=== PATIENT | male | born 1935 | race Caucasian/White ===

== ENCOUNTER 2017-02-21 14:56 | Inpatient (IN) | payer OTHER, MEDICARE ==
[~2017-02-21] VITALS: Ht 162.6 cm; Wt 45.8 kg
[2017-02-21 07:45] VITALS: BP 128/67
[~2017-02-21 14:56] MED LIST: GLIP5TAB4 PO; LISI-420 PO; TRAM50TA94 PO
--- NOTE | 2017-02-21 15:19 | NUR ---
Patient wheelchair assisted to bed 7 at this time.
--- NOTE | 2017-02-21 15:20 | NUR ---
81/M BIB DAUGHTER c/o mid abdominal pain, bloating distended firm---February 02, 2017 surgery february 05, 2017---bowel obstruction and hernia repair---] -triple lumen central line left subclavicular -supra umbilical region surgical scar down to suprapubic-stables intact -suprapubic ostomy with bag intact, cloudy urine noted--ostomy site pink and clean -JEREL bulb sution to right inguinal area small amount of dark drainage noted, insert site appears clean intact -stables to hernia repair left inguinal area appear clean and intact pt continues to complain of abd pain distention, fever, chills, loose stools hx ---prostate ca, htn, dm, kidney failureWARM/DRY; AAOX4 WITH EVEN AND STEADY GAIT; LUNGS CLEAR BL; HR EVEN AND REGULAR; PT DENIES ANY FEVER, CP, SOB, OR COUGH AT THIS TIME; PATIENT STATES PAIN OF 0/10 AT THIS TIME; VSS; PATIENT POSITIONED FOR COMFORT; HOB ELEVATED; BEDRAILS UP X2; BED DOWN. ER MD MADE AWARE OF PT STATUS.
--- NOTE | 2017-02-21 15:24 | NUR ---
ER MD DR KENDRICK EVALUATING PT AT BEDSIDE.
[2017-02-21 15:40] VITALS: BP 135/67
[2017-02-21] MEDS ORDERED: PIPERACILLIN/TAZOBACTAM 4.5 GM in DEXTROSE 5% 100 ML IV ONE (15:40)
--- NOTE | 2017-02-21 15:49 | NUR ---
accompanied by daughter in law Patrizia Lopez [phone] / Fabio Lopez [phone]
[2017-02-21] MEDS ORDERED: PIPERACILLIN/TAZOBACTAM 2.25 GM VIAL IV ONE (16:06)
[2017-02-21 16:09] LABS: BASOPHILS % (AUTO) 0.3 % (0.0-2.0); EOSINOPHILS # (AUTO) 0.3 K/uL (0-0.4); EOSINOPHILS % (AUTO) 2.4 % (0.0-4.0); HEMATOCRIT 30.6 % (36-52); LYMPHOCYTES # (AUTO) 0.7 K/uL (2.0-11.5); LYMPHOCYTES % (AUTO) 5.2 % (20.5-51.1); MEAN CORPUSCULAR HEMOGLOBIN 30 pg (27-31); MEAN CORPUSCULAR HGB CONC 33 g/dL (33-37); MEAN CORPUSCULAR VOLUME 93 fL (80-94); MONOCYTES # (AUTO) 0.7 K/uL (0.8-1.0); MONOCYTES % (AUTO) 4.6 % (1.7-9.3); NEUTROPHILS # (AUTO) 12.6 K/uL (1.8-7.7); NEUTROPHILS % (AUTO) 87.5 % (42.2-75.2); PLATELET COUNT (AUTO) 495 K/uL (140-450); WHITE BLOOD COUNT (AUTO) 14.3 K/uL (4.8-10.8)
--- NOTE | 2017-02-21 16:20 | NUR ---
Emily marcial in ED - 02/21/17 at 1620 by MED1 PT TAKEN TO CT VIA ANTONIO ACCOMPANIED BY BREANNE CACERES.
--- NOTE | 2017-02-21 16:20 | NUR ---
PT TAKEN TO CT VIA GURSHAYLEE ACCOMPANIED BY SECTION REPAIRER..
[2017-02-21 16:24] LABS: APPEARANCE,URINE SL CLOUDY (CLEAR); BILIRUBIN,URINE NEGATIVE (NEGATIVE); BLOOD, URINE 2+ (NEGATIVE); COLOR,URINE YELLOW (YELLOW); LEUKOCYTE ESTERASE ,URINE 3+ (NEGATIVE); NITRITE, URINE POSITIVE (NEGATIVE); PROTEIN,URINE 2+ (NEGATIVE); UGLUCOSE NEGATIVE (NEGATIVE); UROBILINOGEN,URINE 0.2 EU/dL (0.2 - 1)
[2017-02-21 16:30] LABS: ALANINE AMINOTRANSFERASE 29 U/L (12-78); ALBUMIN 2.1 g/dL (3.4-5.0); ALKALINE PHOSPHATASE 246 U/L (46-116); AMYLASE 69 U/L (25-115); ANION GAP 9.5 (8-16); ASPARTATE AMINOTRANSFERASE 24 U/L (15-37); CALCIUM 8.4 mg/dL (8.5-10.1); CHLORIDE 97 mmol/L (98-107); CREATININE 1.1 mg/dL (0.6-1.3); GLUCOSE 98 mg/dL (74-106); LIPASE 78 U/L (73-393); POTASSIUM 4.5 mmol/L (3.5-5.1); SODIUM SERUM 132 mmol/L (136-145); TOTAL BILIRUBIN 0.4 mg/dL (0.0-1.0); TOTAL PROTEIN, SERUM 6.7 g/dL (6.4-8.2); UREA NITROGEN, BLOOD 28 mg/dL (7-18)
[2017-02-21 16:32] LABS: LACTIC ACID 1.1 mmol/L (0.4-2.0)
[2017-02-21 16:48] LABS: BACTERIA,URINE 3+ /HPF (None Seen); RBC,URINE 3-10 (FEW) /HPF (0-5); WBC,URINE TOO MANY TO COUNT /HPF (0-5)
[2017-02-21 16:49] LABS: SQUAMOUS EPITHELIAL CELL,UR 0-3 (FEW) /LPF (0-3 (FEW))
--- NOTE | 2017-02-21 19:27 | NUR ---
Patient will be admitted to care of TIPPLE SUPERVISOR BAR. Admited to MS. Will go to [id number]. Belongings list completed. Report to GILLIAN SHAW.
[2017-02-21] MEDS ORDERED: MORPHINE SULFATE 2 MG/ML SYR IVP PRN (19:35)
[2017-02-21] MEDS ORDERED: HYDROcodone/APAP 5/325 MG 1 TAB TAB PO PRN (19:35)
[2017-02-21] MEDS ORDERED: ACETAMINOPHEN 325 MG TAB PO PRN (19:35)
[2017-02-21] MEDS ORDERED: ONDANSETRON 4 MG/2 ML VIAL IVP PRN (19:35)
[2017-02-21] MEDS ORDERED: LORazepam 2 MG/ML VIAL IVP PRN (19:35)
--- NOTE | 2017-02-21 19:40 | NUR ---
ADMITTED A 81 YEARS OLD MALE INTO TELE UNIT. PATIENT RESTING IN BED, TELE MONITOR PLACED, NO S/S OF ACUTE DISTRESS NOTED. A TRIPLE LUMEN CATHETER CENTRAL LINE TO THE LT SUBCLAVIAN NOTED, INTACT AND PATENT, DRESSING DRY AND CLEAN, ILEOCYSTOSTOMY STOMA AT LT LOWER ABDOMINAL QUADRANT WITH A BAG DRAINING YELLOW URINE, RT LOWER ABDOMINAL AREA NOTED A SAN[place], NO DRAINAGE NOTED AT THIS TIME. UPON SKIN ASSESSMENT, NOTED A VERTICAL SURGICAL INCISION ON THE ABDOMEN, INCISION CLEAN AND NO DRAINAGE NOTED. PATIENT ALERT, AWAKE, ORIENTED X4. VITAL SIGNS TAKEN, WITH IN NORMAL RANGE. CALL LIGHT WITHIN REACH, SAFETY MEASURE ENSURED, WILL CONTINUE TO MONITOR.
[2017-02-21 19:45] VITALS: BP 128/67
[2017-02-21] MEDS ORDERED: PIPERACILLIN/TAZOBACTAM 3.375 GM VIAL IV ONE (21:38)
[2017-02-21] MEDS: PIPERACILLIN/TAZOBACTAM 3.375 GM in DEXTROSE 5% 50 ML IV SCH (21:39)
[2017-02-21] MEDS: NACL 0.9% 1,000 ML IV SCH (21:40)
--- NOTE | 2017-02-21 22:10 | NUR ---
PATIENT STATED PAIN 6/10. MEDICATED ORDERED, WILL CONTINUE TO MONITOR
--- NOTE | 2017-02-21 23:00 | NUR ---
PATIENT ASLEEP IN BED, RESPIRATION EVEN AND UNLABORED, NO S/S OF ACUTE DISTRESS NOTED, CALL LIGHT WITHIN REACH, SAFETY MEASURE ENSURED, WILL CONTINUE TO MONITOR.
[2017-02-22] VITALS: BP 123/63
[2017-02-22 04:00] VITALS: BP 135/67
[2017-02-22] MEDS ORDERED: PIPERACILLIN/TAZOBACTAM 3.375 GM VIAL IV ONE (04:46)
[2017-02-22] MEDS: PIPERACILLIN/TAZOBACTAM 3.375 GM in DEXTROSE 5% 50 ML IV SCH (04:46)
--- NOTE | 2017-02-22 04:50 | NUR ---
ZOSYN GIVEN ORDERED, CHARGE NURSE IS IN THE ROOM CHANGING THE ILEOCYSTOSTOMY BAG. PATIENT IS STABLE.
--- NOTE | 2017-02-22 05:30 | NUR ---
PATIENT ASLEEP IN BED , RESPIRATION EVEN AND UNLABORED, NO S/S OF ACUTE DISTRESS NOTED, WILL CONTINUE TO MONITOR.
[2017-02-22 05:52] LABS: BASOPHILS # (AUTO) 0.1 K/uL (0.00-0.22); BASOPHILS % (AUTO) 0.6 % (0.0-2.0); EOSINOPHILS # (AUTO) 0.2 K/uL (0-0.4); EOSINOPHILS % (AUTO) 2.6 % (0.0-4.0); HEMATOCRIT 26.7 % (36-52); HEMOGLOBIN 8.5 g/dL (12.0-18.0); LYMPHOCYTES % (AUTO) 10.4 % (20.5-51.1); MEAN CORPUSCULAR HEMOGLOBIN 29 pg (27-31); MEAN CORPUSCULAR HGB CONC 32 g/dL (33-37); MEAN CORPUSCULAR VOLUME 92 fL (80-94); MONOCYTES # (AUTO) 0.6 K/uL (0.8-1.0); MONOCYTES % (AUTO) 6.7 % (1.7-9.3); NEUTROPHILS # (AUTO) 7.7 K/uL (1.8-7.7); NEUTROPHILS % (AUTO) 79.7 % (42.2-75.2); PLATELET COUNT (AUTO) 417 K/uL (140-450); RED CELL DISTRIBUTION WIDTH 14.2 % (11.6-13.7); WHITE BLOOD COUNT (AUTO) 9.6 K/uL (4.8-10.8)
[2017-02-22 06:24] LABS: ALANINE AMINOTRANSFERASE 23 U/L (12-78); ALBUMIN 1.8 g/dL (3.4-5.0); ALKALINE PHOSPHATASE 189 U/L (46-116); ANION GAP 10.5 (8-16); ASPARTATE AMINOTRANSFERASE 20 U/L (15-37); CALCIUM 7.8 mg/dL (8.5-10.1); CARBON DIOXIDE 29.3 mmol/L (21-32); CHLORIDE 98 mmol/L (98-107); CREATININE 1.2 mg/dL (0.6-1.3); GLUCOSE 143 mg/dL (74-106); POTASSIUM 4.8 mmol/L (3.5-5.1); SODIUM SERUM 133 mmol/L (136-145); TOTAL BILIRUBIN 0.5 mg/dL (0.0-1.0); UREA NITROGEN, BLOOD 25 mg/dL (7-18)
--- NOTE | 2017-02-22 07:15 | NUR ---
ENDORSED PLAN OF CARE TO DAY RN. PATIENT IS IN STABLE CONDITION.
--- NOTE | 2017-02-22 07:15 | NUR ---
RECEIVED PT REPORT AT BEDSIDE FROM NIGHT NURSE. PT IS AAOX4 AND SHOWS NO S/S OF DISTRESS ON ROOM AIR. PT HAS A PICC LINE ON THE UPPER LEFT SIDE OF HIS CHEST THAT HAS IVF'S INFUSING WELL. PT HAS AN ABD INCISION WITH YON THAT IS AYO FROM AN ABD SURGERY SECONDARY TO SMALL BOWEL OBSTRUCTION THAT WAS DONE 2 WEEKS AGO. PT HAS A SUPRAPUBIC OSTOMY CATHETER ATTACHED TO A BAG WITH YELLOW CLEAR URINE. PT ALSO HAS A JEREL DRAIN WITH NO DRAINAGE. PT STATES HE HAS PAIN OF 6/10 ON HIS EPIGASTRIC REGION. WILL ADMINISTER PRN PAIN MEDICATION. PT HAS EDUCATED ON HIS POC AND HER VERBALIZED UNDERSTANDING. THE BED IS LOWERED WITH CALL LIGHT WITHIN REACH WILL CONTINUE TO MONITOR.
[2017-02-22 08:00] VITALS: BP 152/64
--- NOTE | 2017-02-22 08:30 | NUR ---
ADMINISTERED SCHEDULED MEDICATIONS AND PRN PAIN MEDICATION. PT TOLERATED WELL. PT IS NOW BEING SEEN BY AIRPORT ELECTRICIAN.
[2017-02-22] MEDS: NACL 0.9% 1,000 ML IV SCH (08:37)
[2017-02-22] MEDS: ENOXAPARIN 40 MG/0.4 ML SYR SUBQ SCH (08:37)
--- NOTE | 2017-02-22 09:50 | NUR ---
PATIENT HAS BEEN SCREENED AND CATEGORIZED HIGH NUTRITION RISK. PATIENT WILL BE SEEN WITHIN 1-2 DAYS OF ADMISSION. 02/22/17-02/23/[address]
--- NOTE | 2017-02-22 11:00 | NUR ---
PT HAD A LARGE LOOSE BM. PT WAS GIVEN PERINEAL CARE AND REPOSITIONED. PT STATES NO PAIN AND SHOWS NO S/S OF DISTRESS ON ROOM AIR.
--- NOTE | 2017-02-22 11:55 | NUR ---
CM NOTE INITIAL REVIEW FAXED TO [facility] / FAX# [phone], ATTN: NAHUM #[phone]
[2017-02-22 12:00] VITALS: BP 147/78
--- NOTE | 2017-02-22 12:35 | NUR ---
02/22/17 RD INITIAL ASSESSMENT COMPLETED PLEASE REFER TO NUTRITION ASSESSMENT UNDER CARE ACTIVITY FOR ESTIMATED NUTRITIONAL NEEDS. 1. WHEN MEDICALLY FEASIBLE, INITIATE PO DIET TO START ON CLEAR LIQUID DIET AND ADVANCE TOLERATED TO REGULAR DIET 2. IF PO DIET NOT FEASIBLE WITHIN 2-3 DAYS, CONSIDER PARENTERAL NUTRITION SUPPORT 3. RD TO FOLLOW-UP 2-3 DAYS; HIGH RISK HARMAN PACHECO, SADE
[2017-02-22] MEDS: PIPER/TAZO 2.25GM/D5W PREMIX 50 ML IV SCH ×3 (12:42→23:23)
--- NOTE | 2017-02-22 12:42 | NUR ---
ADMINISTERED SCHEDULED MEDICATIONS. PT SHOWS NO S/S OF DISTRESS ON ROOM AIR. PT DENIES PAIN. PT DOES STATE HE FEELS WEAK. PT ENCOURAGED TO USE CALL LIGHT WHENEVER HE NEEDS ASSISTANCE. PT VELARIZED UNDERSTANDING. WILL CONTINUE TO MONITOR.
[2017-02-22] MEDS ORDERED: INSULIN LISPRO SLIDING SCALE 100 UNITS/ML VIAL SUBQ PRN (12:55)
[2017-02-22] MEDS ORDERED: PIPER/TAZO 3.375GM/D5W PREMIX 50 ML IV SCH (13:00)
[2017-02-22] MEDS: DEXT 5% / NACL 0.9% 1,000 ML IV SCH (14:00)
--- NOTE | 2017-02-22 14:30 | NUR ---
PT IS IN BED SLEEPING AND SHOWS NO S/S OF DISTRESS ON ROOM AIR. PT HAVE NOTED PICC LINE WITH IVF'S INFUSING WELL.PT DENIES PAIN. WILL CONTINUE TO MONITOR.
[2017-02-22 16:15] VITALS: BP 123/63
[2017-02-22] MEDS ORDERED: BLOOD GLUCOSE MONITORING 1 DEV DEV FS SCH (16:30)
--- NOTE | 2017-02-22 16:30 | NUR ---
PT HAS HAD ANOTHER LOOSE BM. PT HAS AN ORDER FOR C DIFF COLLECTION HOWEVER THERE IS NOT ENOUGH STOOL TO BE COLLECTED. PT WAS GIVEN PERINEAL CARE AND REPOSITIONED. WILL CONTINUE TO MONITOR.
--- NOTE | 2017-02-22 18:37 | NUR ---
ADMINISTERED SCHEDULED MEDICATIONS. PT THEN HAD A LARGE BM. PT WAS GIVEN PERINEAL CARE AND REPOSITIONED. RN COLLECTED STOOL SPECIMEN FOR C DIFF TOXIN CULTURE AND SENT TO LAB.
--- NOTE | 2017-02-22 18:39 | NUR ---
PT IS AAOX4 AND SHOWS NO S/S OF DISTRESS ON ROOM AIR. PT SUPRAPUBIC OSTOMY HAS CLEAR YELLOW URINE. PT'S JEREL DRAIN HAD NO DRAINAGE DURING SHIFT. PT'S ABD INCISION IS AYO WITH PINK SURROUNDING TISSUE. PT DENIES PAIN. IV HAVE ABX INFUSING WELL. WILL ENDORSE TO THE NIGHT NURSE.
--- NOTE | 2017-02-22 19:28 | NUR ---
GAVE REPORT TO WINDOWS VMWARE ENGINEER NURSE. PT ENDORSED IN STABLE CONDITION.
--- NOTE | 2017-02-22 19:30 | NUR ---
RECEIVED PT SLEEPING, EASILY AROUSABLE BUT LETHARGIC, AAOX4, ABLE TO MAKE NEEDS KNOWN, VITAL SIGNS STABLE, DENIES ANY PAIN, IVF WITH D5 NS @75ML/H, INFUSING WELL VIA LEFT UPPER CHEST 3 LUMEN CENTRAL LINE, MIDLINE ABDOMINAL INCISION WITH YON, OPEN TO AIR, NO DRAINAGE OR BLEEDING NOTED, WITH RT JEREL DRAIN TO BULB SUCTION WITH SCANTY DARK RED DRAINAGE, WITH LEFT UROSTOMY TUBE ATTACH TO DRAINAGE BAG NOTED, LEAKING NOTED ON THE STOMA SITE, 'Devin AWARE PER AM RN, DRAINING CLOUDY YELLOW URINE, MAINTAIN ON NPO, SAFETY MEASURES IN PLACE, CALL LIGHT WITHIN REACH. Addendum: 02/23/17 at 0518 by Christian Aaron RN JEREL DRAINAGE DARK BROWN IN COLOR
[2017-02-22 20:00] VITALS: BP 136/72
--- NOTE | 2017-02-22 21:00 | NUR ---
PT SEEN SLEEPING WITH BLANKET OVER HIS HEAD, EASILY AROUSABLE, DENIES ANY PAIN, ALL NEEDS ATTENDED
[2017-02-23] VITALS: BP 130/62
--- NOTE | 2017-02-23 | NUR ---
PT SLEEPING, NO SIGNS OF DISTRESS, VITAL SIGNS STABLE, AFEBRILE, DENIES ANY PAIN, NO EPISODE OF DIARRHEA NOTED SO FAR, IV ANTIBIOTIC INFUSING WELL, CONTINUE TO MONITOR CLOSELY.
[2017-02-23] MEDS: DEXT 5% / NACL 0.9% 1,000 ML IV SCH (03:59)
[2017-02-23 04:00] VITALS: BP 132/66
--- NOTE | 2017-02-23 04:00 | NUR ---
PT SLEEPING, NO SIGNS OF DISTRESS, VITAL SIGNS STABLE, AFEBRILE, IVF INFUSING WELL, MONITORED CLOSELY.
[2017-02-23] MEDS: PIPER/TAZO 2.25GM/D5W PREMIX 50 ML IV SCH ×2 (05:15→13:03)
--- NOTE | 2017-02-23 05:20 | NUR ---
PT EASILY AROUSABLE, DENIES ANY PAIN, DUE IV ANTIBIOTIC ADMINISTERED, CATHETER DRAINAGE WITH 400ML URINE OUTPUT, JEREL DRAIN WITH SCANTY DARK BROWN DRAINAGE, CONTINUE ON BULB SUCTION, NO EPISODE OF DIARRHEA NOTED, MAINTAINED ON NPO, IVF INFUSING WELL,
[2017-02-23 06:20] LABS: BASOPHILS % (AUTO) 0.1 % (0.0-2.0); EOSINOPHILS # (AUTO) 0.1 K/uL (0-0.4); EOSINOPHILS % (AUTO) 1.7 % (0.0-4.0); HEMOGLOBIN 8.2 g/dL (12.0-18.0); LYMPHOCYTES % (AUTO) 14.3 % (20.5-51.1); MEAN CORPUSCULAR HEMOGLOBIN 30 pg (27-31); MEAN CORPUSCULAR HGB CONC 33 g/dL (33-37); MEAN CORPUSCULAR VOLUME 92 fL (80-94); MONOCYTES # (AUTO) 0.5 K/uL (0.8-1.0); MONOCYTES % (AUTO) 7.9 % (1.7-9.3); NEUTROPHILS # (AUTO) 5.2 K/uL (1.8-7.7); PLATELET COUNT (AUTO) 401 K/uL (140-450); RED BLOOD CELL COUNT(AUTO) 2.71 MIL/uL (4.20-6.10); RED CELL DISTRIBUTION WIDTH 14.1 % (11.6-13.7); WHITE BLOOD COUNT (AUTO) 6.8 K/uL (4.8-10.8)
[2017-02-23 06:50] LABS: ALANINE AMINOTRANSFERASE 23 U/L (12-78); ALBUMIN 1.7 g/dL (3.4-5.0); ALKALINE PHOSPHATASE 179 U/L (46-116); ANION GAP 11.9 (8-16); ASPARTATE AMINOTRANSFERASE 20 U/L (15-37); CALCIUM 7.5 mg/dL (8.5-10.1); CARBON DIOXIDE 27.9 mmol/L (21-32); CHLORIDE 105 mmol/L (98-107); CREATININE 1.2 mg/dL (0.6-1.3); GLUCOSE 238 mg/dL (74-106); POTASSIUM 3.8 mmol/L (3.5-5.1); SODIUM SERUM 141 mmol/L (136-145); TOTAL BILIRUBIN 0.3 mg/dL (0.0-1.0); TOTAL PROTEIN, SERUM 5.7 g/dL (6.4-8.2); UREA NITROGEN, BLOOD 20 mg/dL (7-18)
--- NOTE | 2017-02-23 07:32 | NUR ---
PT SLEEPING, EASILY AROUSABLE, NO DISTRESS NOTED, REPORT GIVEN TO LIANNA FRENCH FOR CONTINUITY OF CARE.
--- NOTE | 2017-02-23 07:32 | NUR ---
RECEIVED PT REPORT AT BEDSIDE FROM NIGHT NURSE. PT IS AAOX4 AND SHOWS NO S/S OF DISTRESS ON ROOM AIR. PT HAS A NOTED UPPER 3 LUMEN CENTRAL LINE WITH IVF'S INFUSING WELL. PT HAS A NOTED ABD INCISION WITH YON AYO WITH NO SIGNS OF INFECTION. PT ALSO HAS A UROSTOMY BAG TO THE LLQ OF THE ABD WITH YELLOW CLOUDY URINE. PT HAS A JEREL DRAIN WITH SCANT DARK RED DRAINAGE. PT IS ABLE TO MAKE NEEDS KNOWN. PT DENIES PAIN. PT WAS EDUCATED ON THE POC FOR TODAY AND VERBALIZED UNDERSTANDING. PT BED IS LOWERED WITH CALL LIGHT WITHIN REACH. WILL CONTINUE TO MONITOR.
[2017-02-23 08:00] VITALS: BP 141/67
--- NOTE | 2017-02-23 08:10 | NUR ---
PT SHOWS NO S/S OF DISTRESS ON ROOM AIR. PT IS RESTING IN BED.
[2017-02-23] MEDS: LISINOPRIL 20 MG TAB PO SCH (09:25)
[2017-02-23] MEDS: ENOXAPARIN 40 MG/0.4 ML SYR SUBQ SCH (09:29)
--- NOTE | 2017-02-23 09:29 | NUR ---
ADMINISTERED SCHEDULED MEDICATIONS. PT TOLERATED ACTIVITY WELL. PT'S BED IS LOWERED WITH CALL LIGHT WITHIN REACH. WILL CONTINUE TO MONITOR.
--- NOTE | 2017-02-23 09:50 | NUR ---
PT SEEN BY DR MILLER. DR DISCONTINUED JEREL DRAIN WHICH CONTAINED A SCANT AMOUNT OF DARK RED BLOOD. DR ORDERED TO PLACE A DRESSING OVER THE WOUND OPENING FROM THE JEREL DRAIN INSERTION. DR ALSO TOOK OUT A COUPLE YON TOWARDS THE BOTTOM OF THE ABD MIDLINE INCISION. DR PLACED ORDERS TO PACK ABD WOUND WITH 2X2 GAUZE AND COVER WITH DRESSING. RN PLACED A NEW UROSTOMY BAG TO PT. PT TOLERATED ACTIVITY WELL. PT DENIES PAIN. PT BED WAS LOWERED WITH CALL LIGHT WITHIN REACH.
--- NOTE | 2017-02-23 11:57 | NUR ---
RECEIVED PT URINE CULTURE OF POSITIVE FOR ENTEROBACTER CLOACAE MDRO. WILL NOTIFY DR GALVAN.
[2017-02-23 12:00] VITALS: BP 130/74
--- NOTE | 2017-02-23 12:00 | NUR ---
PT IS BEING SEEN BY WOUND CONSULT RN. PT IS AAOX4 AND STATES HE IS TIRED. PAULETTE WOUND NURSE ASSESSED WOUND. PT TOLERATED WOUND CONSULT WELL. PT SHOWS NO S/S OF DISTRESS ON ROOM AIR. PT BED LOWERED WITH CALL LIGHT WITHIN REACH.
--- NOTE | 2017-02-23 13:10 | NUR ---
CM NOTE INITIAL REVIEW FAXED TO [facility] / FAX# [phone], ATTN: NAHUM #[phone]
--- NOTE | 2017-02-23 13:15 | NUR ---
ADMINISTERED SCHEDULED MEDICATIONS. PT WAS SAT UP TO EAT LUNCH.
[2017-02-23] MEDS ORDERED: TPN PER PHARMACY MC PRN (14:30)
--- NOTE | 2017-02-23 14:30 | NUR ---
DR. GALVAN ORDERED TPN FOR PT HOWEVER ORDER CANNOT BE FULFILLED UNTIL TOMORROW MORNING PER PHARMACY.
[2017-02-23] MEDS ORDERED: LEVOFLOXACIN 500 MG/D5W PREMIX 100 ML IV SCH (14:35)
--- NOTE | 2017-02-23 14:47 | NUR ---
PT BEING SEEN BY DR GALVAN. PT IS AAOX4 AND SHOWS NO S/S OF DISTRESS ON ROOM AIR. PT STATES NO PAIN.
--- NOTE | 2017-02-23 15:20 | NUR ---
PT IS SLEEPING AND SHOWS NO S/S OF DISTRESS ON ROOM AIR.
[2017-02-23 16:00] VITALS: BP 137/56
[2017-02-23] MEDS: LEVOFLOXACIN 250 MG/D5 PREMIX 50 ML IV SCH (17:14)
--- NOTE | 2017-02-23 17:14 | NUR ---
ADMINISTERED SCHEDULED MEDICATIONS. PT IS IN BED AND STATES HE IS TIRED WILL CONTINUE TO MONITOR.
[2017-02-23] MEDS: DEXTROSE 10% 1,000 ML IV SCH ×2 (17:20→20:03)
--- NOTE | 2017-02-23 17:20 | NUR ---
PT HAS DEXTOSE 10% SCHEDULED HOWEVER NON ARE AVAILABLE. CALLED PHARMACY AND THEY SAID THEY WOULD BRING IT TO UNIT. WILL ENDORSE TO NIGHT NURSE.
--- NOTE | 2017-02-23 18:00 | NUR ---
PT IS AROUSABLE TO NAME. PT IS AAOX4 AND SHOWS NO S/S OF DISTRESS ON ROOM AIR.
--- NOTE | 2017-02-23 19:20 | NUR ---
PT HAS VISITORS AT BEDSIDE AND SHOWS NO S/S OF DISTRESS ON ROOM AIR. PT HAS NOTED CENTRAL LINE WITH IVF'S INFUSING. PT DENIES PAIN AND SOB. PT REPORT WAS DONE AT BEDSIDE. PT ENDORSED IN STABLE CONDITION.
--- NOTE | 2017-02-23 19:35 | NUR ---
RECEIVED REPORT FROM LIANNA FRENCH. PATIENT IS AWAKE, ALERT, AND RESTING IN BED WITH FAMILY MEMBERS AT BEDSIDE. PATIENT IS PRIMARILY PERSIAN SPEAKING. NO SINGS OF ACUTE DISTRESS OR SHORTNESS OF BREATH NOTED AT THIS TIME. THERE IS A TRIPLE LUMEN CATHETER IN THE PATIENT'S LEFT SUBCLAVIAN RECEIVING D5NS AT 75 ML/HR. SITE IS DRY, INTACT, AND ASYMPTOMATIC. THERE IS A UROSTOMY BAG PRESENT. PATIENT IS S/P ABDOMINAL PROCEDURE BY DR. MILLER. THERE IS A SURGICAL INCISION IN THE PATIENT'S MIDLINE WITH YON COVERED WITH DRESSING. PATIENT PREVIOUSLY HAD A JEREL DRAIN IN THE RIGHT SIDE OF THE ABDOMEN, WHICH WAS REMOVED DURING DAY SHIFT. SITE IS COVERED WITH DRESSING. EXPLAINED PLAN OF CARE TO PATIENT AND FAMILY TO INCLUDE TELEMETRY MONITORING, VITAL SIGNS Q4H, AND SCHEDULED MEDICATION ADMINISTRATION. PATIENT AND FAMILY MEMBERS VERBALIZED UNDERSTANDING. SAFETY MEASURES ENFORCED, WITH CALL LIGHT WITHIN REACH. WILL CONTINUE TO MONITOR PATIENT.
[2017-02-23 20:00] VITALS: BP 131/57
[2017-02-24] VITALS: BP 128/57
--- NOTE | 2017-02-24 | NUR ---
PATIENT RESTING COMFORTABLY IN BED WITH NO SIGNS OF RESPIRATORY DISTRESS OR SOB NOTED. VITAL SIGNS ARE STABLE. NO REPORTS OF PAIN OR DISCOMFORT. HOB AT 30 DEGREES WITH BED IN LOW POSITION. CALL LIGHT WITHIN REACH. WILL CONTINUE TO MONITOR PATIENT.
--- NOTE | 2017-02-24 02:05 | NUR ---
ROUNDED ON PATIENT. PATIENT IS RESTING COMFORTABLY IN BED. NO SIGNS OF DISTRESS OR DISCOMFORT NOTED. BREATHING IS EVEN AND UNLABORED. SAFETY MEASURES ENFORCED, WITH CALL LIGHT WITHIN REACH. WILL CONTINUE TO MONITOR PATIENT.
--- NOTE | 2017-02-24 03:45 | NUR ---
VITAL SIGNS ARE STABLE. NO REPORTS OF PAIN OR DISCOMFORT. CONTINUE TO MONITOR PATIENT.
[2017-02-24 04:00] VITALS: BP 145/65
--- NOTE | 2017-02-24 05:10 | NUR ---
PATIENT RESTING COMFORTABLY IN BED. PATIENT COVERED HIMSELF INCLUDING HEAD WITH BLANKET. BREATHING IS EVEN AND UNLABORED. CALL LIGHT WITHIN REACH. CONTINUE TO MONITOR PATIENT.
--- NOTE | 2017-02-24 07:11 | NUR ---
PATIENT IN STABLE CONDITION. ALL NEEDS ATTENDED TO DURING SHIFT. ENDORSED CONTINUITY OF CARE TO LIANNA FRENCH.
--- NOTE | 2017-02-24 07:20 | NUR ---
RECEIVED PT REPORT AT BEDSIDE FROM NIGHT NURSE. PT IS AAOX4 AND SHOWS NO S/S OF DISTRESS ON ROOM AIR. PT HAS A NOTED CENTRAL LINE IN HIS L UPPER CHEST WITH 3 LUMEN AND IVF'S INFUSING WELL. PT HAS A NOTED ABD INCISION WITH YON FUNERAL WORKERS WITH NO SIGNS OF INFECTION. PT ALSO HAS A UROSTOMY BAG TO THE LLQ OF THE ABD WITH YELLOW CLOUDY URINE. PT HAS A SOILED DRESSING TO THE RLQ. PT IS ABLE TO MAKE NEEDS KNOWN. PT DENIES PAIN. PT WAS EDUCATED ON THE POC FOR TODAY AND VERBALIZED UNDERSTANDING. PT BED IS LOWERED WITH CALL LIGHT WITHIN REACH. WILL CONTINUE TO MONITOR.
[2017-02-24 07:29] LABS: BASOPHILS % (AUTO) 0.5 % (0.0-2.0); EOSINOPHILS # (AUTO) 0.1 K/uL (0-0.4); EOSINOPHILS % (AUTO) 1.7 % (0.0-4.0); HEMATOCRIT 24.7 % (36-52); HEMOGLOBIN 8.1 g/dL (12.0-18.0); LYMPHOCYTES % (AUTO) 11.9 % (20.5-51.1); MEAN CORPUSCULAR HEMOGLOBIN 30 pg (27-31); MEAN CORPUSCULAR HGB CONC 33 g/dL (33-37); MEAN CORPUSCULAR VOLUME 92 fL (80-94); MONOCYTES # (AUTO) 0.3 K/uL (0.8-1.0); MONOCYTES % (AUTO) 3.9 % (1.7-9.3); PLATELET COUNT (AUTO) 400 K/uL (140-450); RED BLOOD CELL COUNT(AUTO) 2.68 MIL/uL (4.20-6.10); RED CELL DISTRIBUTION WIDTH 14.4 % (11.6-13.7); WHITE BLOOD COUNT (AUTO) 8.4 K/uL (4.8-10.8)
[2017-02-24 07:58] LABS: ALANINE AMINOTRANSFERASE 27 U/L (16-63); ALBUMIN 1.7 g/dL (3.4-5.0); ALKALINE PHOSPHATASE 152 U/L (46-116); ANION GAP 8.1 (8-16); ASPARTATE AMINOTRANSFERASE 24 U/L (15-37); CALCIUM 7.4 mg/dL (8.5-10.1); CARBON DIOXIDE 27.5 mmol/L (21-32); CHLORIDE 106 mmol/L (98-107); CREATININE 1.1 mg/dL (0.7-1.3); GLUCOSE 277 mg/dL (74-106); POTASSIUM 3.6 mmol/L (3.5-5.1); SODIUM SERUM 138 mmol/L (136-145); TOTAL BILIRUBIN 0.2 mg/dL (0.0-1.0); TOTAL PROTEIN, SERUM 5.5 g/dL (6.4-8.2); UREA NITROGEN, BLOOD 11 mg/dL (7-18)
[2017-02-24 08:00] VITALS: BP 128/69
[2017-02-24 08:05] LABS: MAGNESIUM 1.7 mg/dL (1.8-2.4)
--- NOTE | 2017-02-24 10:00 | NUR ---
ADMINISTERED SCHEDULED MEDICATIONS. PT TOLERATED ACTIVITY WELL. PT DRESSINGS WERE CHANGE PER WOUND CARE ORDERS (PLEASE SEE WOUND ASSESSMENT). UROSTOMY BAG WAS CHANGE AND CLEANED WITH 50CC OF CLOUDY URINE. PT IS NOW IN BED EATING BREAKFAST AND TOLERATED FOOD WELL. THE BED IS LOWERED WITH CALL LIGHT WITHIN REACH. WILL CONTINUE TO MONITOR.
[2017-02-24] MEDS: LISINOPRIL 20 MG TAB PO SCH (10:24)
[2017-02-24] MEDS: ENOXAPARIN 40 MG/0.4 ML SYR SUBQ SCH (10:25)
[2017-02-24] MEDS ORDERED: MAG SULF 2000 MG/WATER PREMIX 50 ML IV ONE (11:05)
--- NOTE | 2017-02-24 11:12 | NUR ---
PT IS IN BED AND SHOWS NO S/S OF DISTRESS ON ROOM AIR WILL CONTINUE TO MONITOR.
[2017-02-24 12:00] VITALS: BP 146/74
[2017-02-24] MEDS ORDERED: MAGNESIUM SULFATE 50% 1,000 MG in NACL 0.9% 50 ML IV SCH (12:30)
--- NOTE | 2017-02-24 12:45 | NUR ---
PT IS IN ROOM SLEEPING AND SHOWS NO S/S OF DISTRESS ON ROOM AIR.
[2017-02-24] MEDS: DEXTROSE 10% 1,000 ML IV SCH (13:58)
--- NOTE | 2017-02-24 13:58 | NUR ---
ADMINISTERED SCHEDULED MEDICATION. PT IS IN BED AND SHOWS NO S/S OF DISTRESS ON ROOM AIR. PT STATES HE IS COLD WILL GIVE ANOTHER BLANKET.
--- NOTE | 2017-02-24 15:49 | NUR ---
CM NOTE AUTH#'S PROVIDED BY [facility] - FOR TRANSPORT ([facility]) #[id number] - FOR SNF ([place]) #[id number]
--- NOTE | 2017-02-24 15:54 | NUR ---
SS NOTE: PER DANISH FROM [facility] ([phone]), PT CAN GO TO ROOM 117B ANYTIME AFTER [address] SNYDER.
--- NOTE | 2017-02-24 15:55 | NUR ---
CM NOTE PATIENT TO BE PICKED UP VIA GURNEY BY [facility] GOING TO [facility]. ETA 2000.
[2017-02-24 16:00] VITALS: BP 151/78
--- NOTE | 2017-02-24 16:00 | NUR ---
PT IS IN ROOM SLEEPING AND SHOWS NO S/S OF DISTRESS ON ROOM AIR.
--- NOTE | 2017-02-24 16:46 | NUR ---
SS NOTE: PER DR. GALVAN, PT IS OK TO GO TO SNF WITH PT'S TPN FROM [facility]
[2017-02-24] MEDS: LEVOFLOXACIN 250 MG/D5 PREMIX 50 ML IV SCH (17:58)
[2017-02-24] MEDS ORDERED: INSULIN LISPRO SLIDING SCALE 100 UNITS/ML VIAL SUBQ PRN (18:00)
[2017-02-24] MEDS ORDERED: BLOOD GLUCOSE MONITORING 1 DEV DEV MC SCH (18:00)
--- NOTE | 2017-02-24 18:06 | NUR ---
PT BLOOD SUGAR WAS 279. WILL ADMINISTER HUMALOG SLIDING SCALE TOTAL OF 6 UNITS.
--- NOTE | 2017-02-24 19:05 | NUR ---
GAVE PT REPORT TO KALPANA AT [facility]. ALL QUESTIONS WERE ANSWERED. TRANSPORT TO ARRIVE AT 2000. WILL ENDORSE TO NIGHT NURSE.
--- NOTE | 2017-02-24 19:30 | NUR ---
PT HAD A BOWEL MOVEMENT AND URINE BAG LEAKED AND SOILED BED. PT WAS GIVEN PERINEAL CARE AND CHANGED INTO ORANGE GOWN. PT DRESSINGS WERE SOILED AND WERE CHANGED PER WOUND CARE ORDERS. A NEW UROSTOMY BAG WAS GIVEN. PT HAD SOME URINE IN BAD THAT WAS A TOTAL OF 100CC OF CLOUDY URINE. PT NEEDS WERE MET. PT WAS THEN GIVEN DISCHARGE INSTRUCTIONS. ALL PAPERWORK SIGNED. ALL QUESTIONS ANSWERED. PT VERBALIZED UNDERSTANDING OF BEING TRANSPORTED TO [facility]. PT HAS CENTRAL LINE 3 LUMEN PATENT AND INTACT. WRISTBANDS WERE REMOVED AND TELE MONITOR REMOVED. PT FAMILY YADIRA DAUGHTER IN LAW IS AWARE OF PT RETURNING TO [place]. PT AWAITING FOR TRANSPORT TO ARRIVE AT 1999. ALL BELONGINGS AND TPN IN PT'S POSSESSION.
--- NOTE | 2017-02-24 19:30 | NUR ---
IN ADDITION TO LAST NOTE. PT WAS GIVEN PERINEAL CARE AND BATHED. SOILED DRESSINGS WERE THROWN AWAY AND CLEANED. TOOK PICTURES OF ABD INCISION WOUND. THEN PROVIDED WOUND CARE PER MD ORDER.
--- NOTE | 2017-02-24 19:40 | NUR ---
TRANSPORT ARRIVED ONTO UNIT. GAVE PT REPORT TO KEYLA. ALL QUESTIONS WERE ANSWERED. PT WILL BE LEAVING UNIT SHORTLY. PT REPORT WAS GIVEN TO NIGHT NURSE SID FRENCH. PT ENDORSED IN STABLE CONDITION. SID RN IS AWARE TO HAVE ALL BELONGINGS INCLUDING TPN TO BE GIVEN TO TRANSPORT TO BE GIVEN TO [facility] FOR PT [place].
--- NOTE | 2017-02-24 19:45 | NUR ---
PICTURES WERE TAKEN AND TRIED TO PRINT HOWEVER UNABLE TO PRINT WOUND PICTURES DUE TO PRINTER NOT WORKING. SID FRENCH WILL FOLLOW UP.
[2017-02-24] MEDS ORDERED: AMINO ACIDS IV SCH ×4 (20:00)
[2017-02-24] MEDS ORDERED: DEXTROSE IV SCH ×4 (20:00)
[2017-02-24] MEDS ORDERED: [UNRECOGNIZED DRUG - OTHER] IV SCH ×4 (20:00)
[2017-02-24] MEDS ORDERED: MULTIVITAMIN IV SCH ×4 (20:00)
[2017-02-25] MEDS ORDERED: CALCIUM ACETATE 667 MG TAB PO SCH (08:00)
== END 2017-02-24 20:10 | DRG 247 ==
LOC: MED 14:56 → MTU 19:18
PROVIDERS: ADMIT Hospitalist; ATTEND Hospitalist
PROC: 05H633Z Insertion of Infusion Device into Left Subclavian Vein, Percutaneous Approach (ICD-10-PCS; principal; 2017-02-22)
DX: K56.69 Other intestinal obstruction (principal); E43 Unspecified severe protein-calorie malnutrition; N39.0 Urinary tract infection, site not specified; E86.0 Dehydration; E11.9 Type 2 diabetes mellitus without complications; Y83.9 Surgical procedure, unspecified as the cause of abnormal reaction of the patient, or of later complication, without mention of misadventure at the time of the procedure; R64 Cachexia; Y82.8 Other medical devices associated with adverse incidents; I10 Essential (primary) hypertension; Z68.1 Body mass index [BMI] 19.9 or less, adult; Z85.46 Personal history of malignant neoplasm of prostate; Z79.899 Other long term (current) drug therapy
CPT/HCPCS: 36415; 71010; 74250; 80053; 81001; 82150; 82948; 83605; 83690; 83735; 84100; 84478; 84484; 85025; 87040; 87070; 87081; 87086; 87186; 93005; 96365; 97110; 99291; A9153; J1650; J1815; J1956; J2270; J2543; J3475; J7030; J7042; J7060; Q0092

== ENCOUNTER 2018-06-14 21:24 | Inpatient (IN) | payer OTHER, MEDICARE ==
[~2018-06-14] VITALS: Ht 165.1 cm; Wt 47.6 kg
[~2018-06-14 21:24] MED LIST changes: -GLIP5TAB4 PO; -TRAM50TA94 PO
[2018-06-14 21:39] VITALS: BP 160/70
[2018-06-14] MEDS ORDERED: NACL 0.9% 1,000 ML IV ONE (21:49)
[2018-06-14] MEDS ORDERED: ONDANSETRON 4 MG/2 ML VIAL IVP ONE (21:50)
[2018-06-14] MEDS ORDERED: MORPHINE SULFATE 4 MG/ML SYR IVP ONE (21:50)
--- NOTE | 2018-06-14 21:52 | NUR ---
DR. HEDRICK MADE AWARE OF PT STATUS.
--- NOTE | 2018-06-14 21:55 | NUR ---
PT TAKEN TO CT
--- NOTE | 2018-06-14 22:06 | NUR ---
PT AMBULATED TO BED 02
--- NOTE | 2018-06-14 22:30 | NUR ---
FIRST CONTACT WITH PATIENT: PATIENT BIB FAMILY C/O BLOOD IN UROSTOMY BAG X 1 DAY . FAMILY STATES UROSTOMY WAS PLACED 01/2017. PATIENT GCS 15, AAOX4, BREATHING IS EVEN AND UNLABORED. PATIENT DENIES ANY DIZZINESS, NO SOB/CP. PATIENT DOES STATES PAIN IN SUPRAPUBIC REGION, 10/10. PATIENT DENIES ANY N/V/D. PATIENT CHANGED INTO HOSPITAL GOWN, CONNECTED TO CM. FAMILY AT BEDSIDE. NO ACUTE DISTRESS NOTED. DR HEDRICK MADE AWARE. WILL CONTINUE TO MONITOR
[2018-06-14 22:58] LABS: COLOR,URINE RED (YELLOW)
[2018-06-14 22:59] LABS: APPEARANCE,URINE TURBID (CLEAR)
[2018-06-14 23:00] LABS: BILIRUBIN,URINE NEGATIVE (NEGATIVE); BLOOD, URINE 4+ (NEGATIVE); PH,URINE 6.5 (5.0-9.0); UGLUCOSE NEGATIVE (NEGATIVE)
[2018-06-14 23:01] LABS: LEUKOCYTE ESTERASE ,URINE SMALL (NEGATIVE); NITRITE, URINE NEGATIVE (NEGATIVE); RBC,URINE TOO NUMEROUS TO COUN /HPF (0-5); WBC,URINE TOO MANY TO COUNT /HPF (0-5)
[2018-06-14 23:02] LABS: BASOPHILS % (AUTO) 0.1 % (0.0-2.0); EOSINOPHILS # (AUTO) 0.1 K/uL (0-0.4); EOSINOPHILS % (AUTO) 0.9 % (0.0-4.0); HEMATOCRIT 36.6 % (36-52); HEMOGLOBIN 12.1 g/dL (12.0-18.0); LYMPHOCYTES # (AUTO) 1.4 K/uL (2.0-11.5); LYMPHOCYTES % (AUTO) 16.1 % (20.5-51.1); MEAN CORPUSCULAR HEMOGLOBIN 32 pg (27-31); MEAN CORPUSCULAR HGB CONC 33 g/dL (33-37); MEAN CORPUSCULAR VOLUME 96.1 fL (80-94); MONOCYTES # (AUTO) 0.5 K/uL (0.8-1.0); MONOCYTES % (AUTO) 5.6 % (1.7-9.3); NEUTROPHILS # (AUTO) 6.9 K/uL (1.8-7.7); NEUTROPHILS % (AUTO) 77.3 % (42.2-75.2); PLATELET COUNT (AUTO) 177 K/uL (140-450); RED CELL DISTRIBUTION WIDTH 15.2 % (11.6-13.7); WHITE BLOOD COUNT (AUTO) 8.9 K/uL (4.8-10.8)
[2018-06-14] MEDS ORDERED: LEVOFLOXACIN 500 MG/D5W PREMIX 100 ML IV ONE (23:20)
[2018-06-14 23:25] LABS: PROTHROMBIN TIME 10.4 secs (10.8-13.4)
[2018-06-14 23:29] LABS: ALBUMIN 3.5 g/dL (3.4-5.0); ANION GAP 9.6 (8-16); ASPARTATE AMINOTRANSFERASE 16 U/L (15-37); CARBON DIOXIDE 27.4 mmol/L (21-32); CHLORIDE 108 mmol/L (98-107); CREATININE 1.6 mg/dL (0.7-1.3); GLUCOSE 130 mg/dL (74-106); LIPASE 118 U/L (73-393); SODIUM SERUM 141 mmol/L (136-145); TOTAL BILIRUBIN 0.4 mg/dL (0.0-1.0); UREA NITROGEN, BLOOD 30 mg/dL (7-18)
[2018-06-14] MEDS ORDERED: NACL 0.9% 1,000 ML IV SCH (23:58)
[2018-06-15] MEDS ORDERED: cefTRIAXone 1,000 MG VIAL ONE (00:05)
--- NOTE | 2018-06-15 00:18 | NUR ---
TYING MACHINE OPERATOR PRIMARY - YADIRA MONTAGUE (DAUGHTER IN LAW) [phone] SECONDARY - LUIS CLARI (SON) [phone]
[2018-06-15 00:25] VITALS: BP 127/46
--- NOTE | 2018-06-15 00:25 | NUR ---
REPORT RECEIVED FROM ED NURSE AT BEDSIDE. PT IN STABLE CONDITION. AAOX4. INTRODUCED SELF TO PT. BOARD UPDATED. IV SITE R FA 20G RUNNING NS@75ML/HR PATENT AND INTACT. SKIN WARM, DRY, AND INTACT WITH NO OPEN WOUNDS. PT HAS UROSTOMY IN PLACE. CONTACT PRECAUTION FOR HX OF MDRO OF THE URINE. NO COMPLAINTS OF PAIN. NO SOB. BED LOCKED IN LOW POSITION. CALL IVERSON WITHIN REACH. SAFETY PRECAUTIONS IN PLACE.
--- NOTE | 2018-06-15 00:25 | NUR ---
Patient will be admitted to care of DR GROVER. Admited to MS. Will go to room 110B. Belongings list completed. Report to MARKO FRENCH.
[2018-06-15] MEDS ORDERED: ONDANSETRON 4 MG/2 ML VIAL IVP PRN ×2 (00:30)
[2018-06-15] MEDS ORDERED: HYDROcodone/APAP 5/325 MG 1 TAB TAB PO PRN ×2 (00:30)
[2018-06-15] MEDS ORDERED: ACETAMINOPHEN 325 MG TAB PO PRN ×2 (00:30)
[2018-06-15] MEDS: NACL 0.9% 1,000 ML IV SCH ×2 (00:43→14:33)
--- NOTE | 2018-06-15 01:02 | NUR ---
MANUEL HUNG AND RUNNING. MANUEL DUE AT 2320 ON 06/14. OVERRIDDEN BY SANDIE FRENCH. PT TOLERATING WELL.
[2018-06-15] MEDS ORDERED: LEVOFLOXACIN 500 MG/D5W PREMIX 100 ML IV ONE (01:05)
--- NOTE | 2018-06-15 03:20 | NUR ---
PT SLEEPING COMFORTABLY IN BED. NO S/S OF DISTRESS NOTED. NO SOB. NO COMPLAINTS OF PAIN.
--- NOTE | 2018-06-15 07:05 | NUR ---
REPORT GIVEN TO AM NURSE AT BEDSIDE. PT IN STABLE CONDITION.
[2018-06-15 07:19] LABS: BASOPHILS % (AUTO) 0.1 % (0.0-2.0); EOSINOPHILS % (AUTO) 0.5 % (0.0-4.0); HEMATOCRIT 34.6 % (36-52); HEMOGLOBIN 11.5 g/dL (12.0-18.0); LYMPHOCYTES # (AUTO) 1.3 K/uL (2.0-11.5); MEAN CORPUSCULAR HEMOGLOBIN 32 pg (27-31); MEAN CORPUSCULAR HGB CONC 33 g/dL (33-37); MEAN CORPUSCULAR VOLUME 97.1 fL (80-94); MONOCYTES # (AUTO) 0.3 K/uL (0.8-1.0); MONOCYTES % (AUTO) 5.6 % (1.7-9.3); NEUTROPHILS # (AUTO) 4.4 K/uL (1.8-7.7); NEUTROPHILS % (AUTO) 72.8 % (42.2-75.2); PLATELET COUNT (AUTO) 152 K/uL (140-450); RED BLOOD CELL COUNT(AUTO) 3.56 MIL/uL (4.20-6.10); RED CELL DISTRIBUTION WIDTH 14.7 % (11.6-13.7); WHITE BLOOD COUNT (AUTO) 6.1 K/uL (4.8-10.8)
--- NOTE | 2018-06-15 07:30 | NUR ---
RECEIVED PT REPORT FROM LIVESTOCK BUYER NURSE AT BEDSIDE. PT IS SLEEPING, AROUSED BY NAME, OX4. IV SITE NOTED TO R FA 20G, RUNNING NS@75ML/HR PATENT, INTACT AND ASYMPTOMATIC. PT HAS UROSTOMY ON LEFT SIDE, DRAINING DARK RED URINE CONTACT PRECAUTION FOR HX OF MDRO OF THE URINE. NO C/O OF PAIN. NO SOB NOTED. BED IN LOWEST POSITION. CALL LIGHT WITHIN REACH.
[2018-06-15 08:00] VITALS: BP 124/47
--- NOTE | 2018-06-15 08:22 | NUR ---
CM NOTE ADMISSION REVIEW DONE. INITIAL REVIEW FAXED TO [facility] [phone] NAHUM # [phone].
[2018-06-15] MEDS ORDERED: LISINOPRIL 20 MG TAB PO SCH ×2 (09:00)
--- NOTE | 2018-06-15 09:00 | NUR ---
PATIENT HAS BEEN SCREENED AND CATEGORIZED HIGH NUTRITION RISK. PATIENT WILL BE SEEN WITHIN 1-2 DAYS OF ADMISSION. 06/15/18 06/16/[address]
--- NOTE | 2018-06-15 09:10 | NUR ---
UROSTOMY SITE LEAKING. REMOVED OLD UROSTOMY DRESSING AND BAG. CLEANED WITH NS, PATTED DRY. NEW UROSTOMY DRESSING AND BAG APPLIED. PT TOLERATED WELL. BAG STILL DRAINING DARK RED BLOOD.
[2018-06-15] MEDS ORDERED: DEXTROSE 50% 50 ML SYR IVP PRN (11:05)
[2018-06-15] MEDS: BLOOD GLUCOSE MONITORING 1 DEV DEV FS SCH ×3 (12:13→20:54)
[2018-06-15] MEDS: INSULIN LISPRO SLIDING SCALE 100 UNITS/ML VIAL SUBQ PRN ×2 (12:18→20:55)
--- NOTE | 2018-06-15 14:27 | NUR ---
CALLED [phone] PT'S PCP, STATED THAT PT HAS NOT GOTTEN FLU VAC YET FOR THIS YEAR. PT'S DAUGHTER YULISA [phone] NOT SURE IF PT RECEIVED FLU VAC FOR THIS YEAR. WILL NOTIFY DR GROVER.
[2018-06-15 16:00] VITALS: BP 138/47
[2018-06-15] MEDS ORDERED: POLYETHYLENE GLYCOL 17 GM/PKT PO SCH (16:00)
--- NOTE | 2018-06-15 16:05 | NUR ---
DR GROVER HAS SEEN THE PT.
--- NOTE | 2018-06-15 16:10 | NUR ---
REPORTED TO DR GROVER THAT PT C/O CONSTIPATION.
--- NOTE | 2018-06-15 16:46 | NUR ---
06/15/18 RD INITIAL ASSESSMENT COMPLETED PLEASE REFER TO NUTRITION ASSESSMENT UNDER CARE ACTIVITY FOR ESTIMATED NUTRITIONAL NEEDS. 1. CONTINUE CCHO 60 GM DIET TOLERATED 2. RECOMMEND DIET HEALTH SHAKES BID 3. RD TO FOLLOW-UP 3-5 DAYS, MODERATE RISK SHOAIB CHEEK, RD
[2018-06-15] MEDS ORDERED: METO25TE2 PO (17:53)
[2018-06-15] MEDS ORDERED: GLIP5TAB4 PO (17:55)
[2018-06-15] MEDS ORDERED: ASPI81CT89 PO (17:55)
--- NOTE | 2018-06-15 17:55 | NUR ---
SPOKE WITH DR VAUGHN OVER THE PHONE, NOTIFIED MD THAT PT'S DAUGHTER BROUGHT HOME MEDICATION. MD STATED TO STOP LISINOPRIL AND ASPIRIN, CONTINUE METOPROLOL, AND GLIPIZIDE. ALSO, ORDERED UROLOGIST CONSULT.
--- NOTE | 2018-06-15 18:10 | NUR ---
PT FINISHED DINNER, HAD BMX1. NO BLOOD IN STOOL ACCORDING TO PT.
--- NOTE | 2018-06-15 18:15 | NUR ---
PT 'S FAMILY STATED PT IS LACTOSE INTOLERANT. ADDED DESCRIPTION TO DIET ORDER
[2018-06-15] MEDS ORDERED: INFLUENZA VIRUS VACCINE QUAD 0.5 ML SYR IMVAC PRN (18:35)
--- NOTE | 2018-06-15 19:15 | NUR ---
ENDORSED PT TO MACHINE CLERICAL VERIFIER RN. PT IN STABLE CONDITION.
--- NOTE | 2018-06-15 19:16 | NUR ---
RECEIVED PT IN STABLE CONDITION FROM AM NURSE. AWAKE,ALERT AND ORIENTED X4. ON MED SURG. WITH NO C/O ANY PAIN NOTED. HAS IVF INFUSING WELL ONT HE RT FA#20. CLEAR AND PATENT. WITH UROSTOMY URINE OUTPUT STILL BLOODY. BUT NO CLOTS NOTED. PLAN OF CARE DISCUSSED AND VERBALIZED UNDERSTANDING. BED ON LOW POSITION. CALL LIGHT PLACED WITHIN EASY REACH. ON CONTACT ISOLATION DUE TO HX: MDRO URINE. WILL CONTINUE TO MONITOR.
--- NOTE | 2018-06-15 20:55 | NUR ---
BLOOD SUGAR CHECKED RESULT 176. INSULIN COVERAGE GIVEN SUBQ. PROVIDED WITH HS SNACK. WILL CONTINUE TO MONITOR.
--- NOTE | 2018-06-15 22:20 | NUR ---
DR. CARVAJAL CAME AND SEEN AND EXAMINED PT. HE EXPLAINED TO PT THE NEED TO INSERT A BENEDICT CATH TUBE TO THE LT LOWER STOMA. WHICH IS JUST TEMPORARY . PT AGREED . OBTAINED SOME BLOOD CLOTS THE BENEDICT TUBE WAS ADVANCED. THEN CLEAR URINE FOLLOWED. PT TOLERATED THE PROCEDURE WELL. NO C/O ANY PAIN NOTED. WILL CONTINUE TO MONITOR.
[2018-06-15 23:43] VITALS: BP 112/45
[2018-06-16 00:14] LABS: ANION GAP 13.7 (8-16); CARBON DIOXIDE 25.1 mmol/L (21-32); CHLORIDE 108 mmol/L (98-107); CREATININE 1.4 mg/dL (0.7-1.3); GLUCOSE 88 mg/dL (74-106); POTASSIUM 3.8 mmol/L (3.5-5.1); SODIUM SERUM 143 mmol/L (136-145); UREA NITROGEN, BLOOD 21 mg/dL (7-18)
--- NOTE | 2018-06-16 01:00 | NUR ---
PT SLEEPING AT THIS TIME. NO S/S OF ANY DISCOMFORT NOTED. WILL CONTINUE TO MONITOR.
[2018-06-16] MEDS: NACL 0.9% 1,000 ML IV SCH ×2 (03:10→04:52)
--- NOTE | 2018-06-16 03:15 | NUR ---
MADE ROUNDS. PT IS ASLEEP. NO S/S OF ANY DISCOMFORT.
[2018-06-16] MEDS: BLOOD GLUCOSE MONITORING 1 DEV DEV FS SCH ×2 (06:17→11:26)
--- NOTE | 2018-06-16 06:17 | NUR ---
BLOOD SUGAR THIS AM 90. PT HAS IVF INFUSING WELL.
--- NOTE | 2018-06-16 07:25 | NUR ---
RECEIVED PT REPORT FROM TRAY SETTER NURSE AT BEDSIDE. PT IS SLEEPING, AROUSED BY NAME, OX4. IV SITE NOTED TO R FA 20G, RUNNING NS@75ML/HR PATENT, INTACT AND ASYMPTOMATIC. PT HAS ILEOVESICOSTOMY WITH BENEDICT CATH ON LEFT SIDE, DRAINING RED URINE WITH BLOOD CLOTS, IMPROVED FROM YESTERDAY. CONTACT PRECAUTION FOR HX OF MDRO OF THE URINE. NO C/O OF PAIN. NO SOB NOTED. BED IN LOWEST POSITION. CALL LIGHT WITHIN REACH.
--- NOTE | 2018-06-16 07:25 | NUR ---
ENDORSED PT IN STABLE CONDITION TO AM NURSE FOR CONTINUITY OF CARE.
[2018-06-16 08:00] VITALS: BP 126/39
[2018-06-16] MEDS ORDERED: glipiZIDE 5 MG TAB PO SCH (09:00)
[2018-06-16] MEDS ORDERED: POLYETHYLENE GLYCOL 17 GM/PKT PO SCH (09:00)
[2018-06-16] MEDS ORDERED: METOPROLOL SUCCINATE 50 MG TABER PO SCH (09:00)
[2018-06-16] MEDS ORDERED: CEPH250C16 PO (10:15)
--- NOTE | 2018-06-16 10:25 | NUR ---
SPOKE WITH DR CARVAJAL UROLOGIST. OK TO DC. LEAVE BENEDICT CATH IN PLACE. F/U WITH DR CARVAJAL ON TUESDAY, LET PT CALL THE OFFICE FOR APPT. Addendum: 06/16/18 at 1300 by Feliciano Wong RN REPORTED KIDNEY US RESULT AND CREATININE LEVEL TO DR CARVAJAL.
--- NOTE | 2018-06-16 10:35 | NUR ---
CALLED YULISA DAUGHTER AND PT'S SON, LEFT MESSAGE, MADE THEM AWARE THAT PT WILL BE DISCHARGE TODAY. WAITING FOR CALL BACK.
--- NOTE | 2018-06-16 11:43 | NUR ---
URINE IS CLEARER NOW, NO BLOOD SEEN AT THIS TIME.
--- NOTE | 2018-06-16 12:14 | NUR ---
CM NOTE CONCURRENT REVIEW FAXED TO [facility] [phone] NAHUM # [phone].
[2018-06-16] MEDS: INSULIN LISPRO SLIDING SCALE 100 UNITS/ML VIAL SUBQ PRN (12:35)
--- NOTE | 2018-06-16 14:15 | NUR ---
CALLED PT'S DAUGHTER IN LAW YULISA. SPOKE WITH HER, SHE IS COMING AROUND 4PM.
[2018-06-16 15:50] VITALS: BP 140/40
--- NOTE | 2018-06-16 15:50 | NUR ---
PT DISCHARGED PER MD ORDER. PT PREFERS TO USE HIS SON DIRECTOR RADIO RATHER THE PHONE. DISCHARGE INSTRUCTION AND MED TEACHING GIVEN TO PT AND HIS FAMILY. MADE PT AND HIS FAMILY AWARE TO MAKE APPT WITH DR CARVAJAL FOR TUESDAY TO REMOVE BENEDICT CATH AT ILEOVESICOSTOMY SITE AND POSSIBLY TO HAVE CYSTOSCOPY. PT AND HIS SON AND DAUGHTER IN LAW VERBALIZED UNDERSTANDING. URINE IS CLEAR YELLOW AT THIS TIME. NO C/O PAIN. NO S/S ACUTE DISTRESS NOTED. IV DC'D, TIP INTACT, PRESSURE APPLIED. PT'S SON SIGNED DISCHARGE PAPER. WHEELED PT TO LOBBY. WRIST BANDS REMOVED.
== END 2018-06-16 15:50 | disposition home or self-care (01) | DRG 463 ==
LOC: MED 21:24 → MTU 06-15 00:05 → MED 06-15 00:20
PROVIDERS: ADMIT Internal Medicine; ATTEND Internal Medicine
DX: N39.0 Urinary tract infection, site not specified (principal); E11.22 Type 2 diabetes mellitus with diabetic chronic kidney disease; I12.9 Hypertensive chronic kidney disease with stage 1 through stage 4 chronic kidney disease, or unspecified chronic kidney disease; N18.9 Chronic kidney disease, unspecified; Z79.899 Other long term (current) drug therapy; Z85.46 Personal history of malignant neoplasm of prostate; Z93.2 Ileostomy status; Z85.51 Personal history of malignant neoplasm of bladder; Z23 Encounter for immunization
CPT/HCPCS: 36415; 76770; 80048; 80053; 81001; 82948; 83605; 83690; 85025; 85610; 85730; 86886; 86900; 86901; 87040; 87081; 87086; 87186; 90658; 96361; 96374; 96375; 99285; J0696; J1815; J1956; J2270; J2405; J7030; J7060; Q0092

== ENCOUNTER 2018-06-19 17:42 | Emergency (ER) | payer MEDICARE, OTHER ==
[~2018-06-19] VITALS: Ht 157.5 cm; Wt 47.9 kg
[~2018-06-19 17:42] MED LIST changes: +ASPI81CT89 PO; +CEPH250C16 PO; +GLIP5TAB4 PO; -LISI-420 PO; +METO25TE2 PO
[2018-06-19 17:50] VITALS: BP 161/65
--- NOTE | 2018-06-19 18:02 | NUR ---
PT AMBULATES TO BED 11
--- NOTE | 2018-06-19 18:50 | NUR ---
PT SEND BY DR CARVAJAL BIB DAUGHTER HARJEET REQUESTING FOR CHANGING OF LEAKING UROSTOMY CATHETER THAT WAS PLACED ON TUESDAY; DENIES PAIN; PATIENT STATES PAIN OF 0/10 AT THIS TIME; VSS; PATIENT POSITIONED FOR COMFORT; HOB ELEVATED; BEDRAILS UP X1; BED DOWN. ER MD MADE AWARE OF PT STATUS.
--- NOTE | 2018-06-19 19:15 | NUR ---
PT LAYING IN BED, FAMILY AT BEDSIDE.
--- NOTE | 2018-06-19 22:10 | NUR ---
UROSTOMY BAG REMOVED, NEW BAG PLACED W/ DRAINAGE BAG, PT TOLERATED PROCEDURE WELL. PT CHANGED, CLEANED, AND POSITIONED TO COMFORT.
--- NOTE | 2018-06-19 22:35 | NUR ---
PT REFUSED LAB DRAW. STATES HE HAD LABS DRAWN RECENTLY.
[2018-06-19 23:03] LABS: APPEARANCE,URINE SLIGHTLY CLOUDY (CLEAR); COLOR,URINE YELLOW (YELLOW); PH,URINE 7.5 (5.0-9.0)
[2018-06-19 23:04] LABS: BILIRUBIN,URINE NEGATIVE (NEGATIVE); BLOOD, URINE 2+ (NEGATIVE); LEUKOCYTE ESTERASE ,URINE TRACE (NEGATIVE); NITRITE, URINE POSITIVE (NEGATIVE); UGLUCOSE NEGATIVE (NEGATIVE)
[2018-06-19 23:05] LABS: RBC,URINE 3-10 (FEW) /HPF (0-5)
--- NOTE | 2018-06-19 23:24 | NUR ---
YADIRA MONTAGUE TO CONTROL OFFICER MANAGER PT WHEN D/C [phone]
--- NOTE | 2018-06-20 00:48 | NUR ---
CALLED AND SPOKE YADIRA SOLARES TO PICK PT UP AT THIS TIME.
[2018-06-20 01:20] VITALS: BP 139/73
--- NOTE | 2018-06-20 01:20 | NUR ---
Patient discharged with v/s stable. Written and verbal after care instructions given and explained. Patient verbalized understanding. Ambulatory with steady gait. All questions addressed prior to discharge. Advised to follow up with PMD. pt son here to clam picker pt.
== END 2018-06-20 01:20 | disposition home or self-care (01) ==
LOC: MED 17:42
DX: Z46.6 Encounter for fitting and adjustment of urinary device (principal); Z85.51 Personal history of malignant neoplasm of bladder; E11.9 Type 2 diabetes mellitus without complications; I10 Essential (primary) hypertension; Z79.899 Other long term (current) drug therapy; Z85.46 Personal history of malignant neoplasm of prostate; Z79.82 Long term (current) use of aspirin; Z79.84 Long term (current) use of oral hypoglycemic drugs
CPT/HCPCS: 81001; 87086; 87186; 99284

== ENCOUNTER 2018-11-14 12:38 | Emergency (ER) | payer MEDICARE, OTHER ==
[~2018-11-14] VITALS: Ht 162.6 cm; Wt 85.4 kg
[~2018-11-14 12:38] MED LIST changes: +ASPI-1718 PO; -ASPI81CT89 PO
[2018-11-14 13:30] VITALS: BP 109/62
[2018-11-14 13:34] VITALS: BP 132/79
--- NOTE | 2018-11-14 14:15 | NUR ---
PATIENT AMBULATED TO BED 3.
--- NOTE | 2018-11-14 14:30 | NUR ---
PT BIB FAMILY FOR HEMATURIA. PT REPORTS HEMATURIA X4 DAYS. PT HAS SUPRABUBIC CATHETER WITH 50ML OF CLOUDY RED URINE WITH FOUL ODOR. PT DENIES PAIN AT THIS TIME. VSS. ER TO SEE PT.
[2018-11-14 14:44] LABS: BASOPHILS % (AUTO) 0.4 % (0.0-2.0); EOSINOPHILS # (AUTO) 0.1 K/uL (0-0.4); EOSINOPHILS % (AUTO) 1.3 % (0.0-4.0); HEMATOCRIT 38.8 % (36-52); HEMOGLOBIN 12.9 g/dL (12.0-18.0); LYMPHOCYTES # (AUTO) 1.6 K/uL (2.0-11.5); LYMPHOCYTES % (AUTO) 30.7 % (20.5-51.1); MEAN CORPUSCULAR HEMOGLOBIN 31 pg (27-31); MEAN CORPUSCULAR HGB CONC 33 g/dL (33-37); MEAN CORPUSCULAR VOLUME 92.9 fL (80-94); MONOCYTES # (AUTO) 0.3 K/uL (0.8-1.0); MONOCYTES % (AUTO) 5.5 % (1.7-9.3); NEUTROPHILS # (AUTO) 3.3 K/uL (1.8-7.7); NEUTROPHILS % (AUTO) 62.1 % (42.2-75.2); PLATELET COUNT (AUTO) 193 K/uL (140-450); RED BLOOD CELL COUNT(AUTO) 4.17 MIL/uL (4.20-6.10); RED CELL DISTRIBUTION WIDTH 14.6 % (11.6-13.7); WHITE BLOOD COUNT (AUTO) 5.3 K/uL (4.8-10.8)
[2018-11-14 14:52] LABS: ANION GAP 12.2 (8-16); CHLORIDE 105 mmol/L (98-107); CREATININE 1.6 mg/dL (0.7-1.3); GLUCOSE 107 mg/dL (74-106); POTASSIUM 4.2 mmol/L (3.5-5.1); SODIUM SERUM 143 mmol/L (136-145); UREA NITROGEN, BLOOD 21 mg/dL (7-18)
[2018-11-14 16:00] LABS: APPEARANCE,URINE CLOUDY (CLEAR); BILIRUBIN,URINE 1+ (NEGATIVE); BLOOD, URINE 3+ (NEGATIVE); COLOR,URINE BROWN (YELLOW); LEUKOCYTE ESTERASE ,URINE 3+ (NEGATIVE); NITRITE, URINE POSITIVE (NEGATIVE); UGLUCOSE NEGATIVE (NEGATIVE)
[2018-11-14 16:02] LABS: RBC,URINE 80-100 /HPF (0-5)
[2018-11-14 16:03] LABS: WBC,URINE 20-60 /HPF (0-5)
--- NOTE | 2018-11-14 16:34 | NUR ---
Patient discharged with v/s stable. Written and verbal after care instructions given and explained. Patient alert, oriented and verbalized understanding of instructions. Ambulatory with steady gait. All questions addressed prior to discharge. ID band removed. Patient advised to follow up with PMD. Rx of KEFLEX given. Patient educated on indication of medication including possible reaction and side effects. Opportunity to ask questions provided and answered. PT ADDS HE HAS AN APPT WITH UROLOGIST THIS WEEK. INSTRUCTED TO START ANTIBIOTICS TODAY
[2018-11-14 16:37] VITALS: BP 127/70
== END 2018-11-14 16:34 | disposition home or self-care (01) ==
LOC: MED 12:38
DX: N39.0 Urinary tract infection, site not specified (principal); N28.9 Disorder of kidney and ureter, unspecified; E11.9 Type 2 diabetes mellitus without complications; I10 Essential (primary) hypertension; Z85.46 Personal history of malignant neoplasm of prostate; Z79.82 Long term (current) use of aspirin; Z79.84 Long term (current) use of oral hypoglycemic drugs; Z79.899 Other long term (current) drug therapy
CPT/HCPCS: 36415; 80048; 81001; 85025; 87086; 87186; 99283

== ENCOUNTER 2019-01-14 15:46 | Inpatient (IN) | payer OTHER, MEDICARE ==
[~2019-01-14] VITALS: Ht 152.4 cm; Wt 49.0 kg
[2019-01-14 16:00] VITALS: BP 131/74
[2019-01-14] MEDS ORDERED: ACETAMINOPHEN EXTRA STRENGTH 500 MG TAB PO ONE (16:00)
--- NOTE | 2019-01-14 16:05 | NUR ---
PT WC'D TO BED 1
--- NOTE | 2019-01-14 16:05 | NUR ---
PT BIB DAUGHTER C/O FEVERS AND SYNCOPAL EPISODE APPROX 1 HOUR AGO. PT HAS HX OF BLADDER CA AND UROSTOMY. TOOK TYLENOL AT 0700. STATES 10 KNEE AND LOW BACK PAIN FROM FALL DENIES LOC. PERRLA BRISK 2 MM. FULL CLEAR SPEECH. YOSI EQUAL STRENGTH TO UPPER AND LOWER EXTREMITIES. PT PLACED ON FULL CLEANERS. HOB UP. BED SIDE RAILS UP X1. ER TO ASSESS PT.
--- NOTE | 2019-01-14 16:29 | NUR ---
DR HEDRICK AT BEDSIDE FOR PT EVALUATION
[2019-01-14] MEDS ORDERED: NACL 0.9% 1,500 ML IV ONE (16:30)
[2019-01-14] MEDS ORDERED: PIPERACILLIN/TAZOBACTAM 3.375 GM in DEXTROSE 5% 50 ML IV ONE (16:30)
[2019-01-14] MEDS ORDERED: PIPERACILLIN/TAZOBACTAM 3.375 GM VIAL IV ONE (16:45)
[2019-01-14 16:49] LABS: HEMATOCRIT 35.7 % (36-52); LYMPHOCYTES # (AUTO) 0.4 K/uL (2.0-11.5); LYMPHOCYTES % (AUTO) 4.3 % (20.5-51.1); MEAN CORPUSCULAR HEMOGLOBIN 32 pg (27-31); MEAN CORPUSCULAR HGB CONC 34 g/dL (33-37); MEAN CORPUSCULAR VOLUME 93.4 fL (80-94); MONOCYTES # (AUTO) 0.4 K/uL (0.8-1.0); MONOCYTES % (AUTO) 3.7 % (1.7-9.3); NEUTROPHILS # (AUTO) 9.5 K/uL (1.8-7.7); PLATELET COUNT (AUTO) 182 K/uL (140-450); RED BLOOD CELL COUNT(AUTO) 3.82 MIL/uL (4.20-6.10); RED CELL DISTRIBUTION WIDTH 14.2 % (11.6-13.7); WHITE BLOOD COUNT (AUTO) 10.3 K/uL (4.8-10.8)
[2019-01-14 16:51] LABS: APPEARANCE,URINE SL CLOUDY (CLEAR); BILIRUBIN,URINE NEGATIVE (NEGATIVE); BLOOD, URINE TRACE-I (NEGATIVE); COLOR,URINE YELLOW (YELLOW); LEUKOCYTE ESTERASE ,URINE 3+ (NEGATIVE); NITRITE, URINE NEGATIVE (NEGATIVE); UGLUCOSE NEGATIVE (NEGATIVE)
[2019-01-14 16:58] LABS: ANION GAP 11.4 (8-16); CARBON DIOXIDE 27.4 mmol/L (21-32); CHLORIDE 101 mmol/L (98-107); CREATININE 1.8 mg/dL (0.7-1.3); GLUCOSE 190 mg/dL (74-106); POTASSIUM 3.8 mmol/L (3.5-5.1); PROTHROMBIN TIME 9.9 secs (10.8-13.4); SODIUM SERUM 136 mmol/L (136-145); UREA NITROGEN, BLOOD 21 mg/dL (7-18)
[2019-01-14 16:59] LABS: RBC,URINE 0-5 /HPF (0-5); WBC,URINE 16-25 (MOD) /HPF (0-5)
[2019-01-14 17:02] LABS: URINE AMORPHOUS URATE 2+ /HPF (None Seen)
[2019-01-14 17:04] LABS: ALBUMIN 3.1 g/dL (3.4-5.0); ASPARTATE AMINOTRANSFERASE 23 U/L (15-37); LIPASE 74 U/L (73-393); TOTAL BILIRUBIN 0.8 mg/dL (0.0-1.0)
--- NOTE | 2019-01-14 17:10 | NUR ---
PT TAKEN TO CT VIA BED BY BRICK MACHINE OPERATOR
--- NOTE | 2019-01-14 17:20 | NUR ---
PT TAKEN BACK FROM CT VIA BED BY DESIGN DRAFTSMAN
[2019-01-14] MEDS ORDERED: LEVOFLOXACIN 500 MG/D5W PREMIX 100 ML IV ONE (18:00)
[2019-01-14] MEDS ORDERED: diphenhydrAMINE 50 MG/ML VIAL IVP PRN (18:05)
[2019-01-14] MEDS ORDERED: ACETAMINOPHEN 650 MG SUPP RC PRN (18:05)
[2019-01-14] MEDS ORDERED: cloNIDine 0.1 MG TAB PO PRN (18:05)
[2019-01-14] MEDS ORDERED: POTASSIUM CHLORIDE 10 MEQ TABER PO PRN (18:05)
[2019-01-14] MEDS ORDERED: LORazepam 2 MG/ML VIAL IVP PRN (18:05)
[2019-01-14] MEDS ORDERED: HYDROcodone/APAP 5/325 MG 1 TAB TAB PO PRN ×2 (18:05)
[2019-01-14] MEDS ORDERED: MORPHINE SULFATE 2 MG/ML SYR IVP PRN (18:05)
[2019-01-14] MEDS ORDERED: ACETAMINOPHEN 325 MG TAB PO PRN (18:05)
[2019-01-14] MEDS ORDERED: POTASSIUM CHLORIDE 40 MEQ, LIDOCAINE 1% 25 MG in NACL 0.9% 250 ML IV PRN (18:05)
[2019-01-14] MEDS ORDERED: ZOLPIDEM 5 MG TAB PO PRN (18:05)
[2019-01-14] MEDS ORDERED: IPRATROPIUM 0.02% 0.5 MG/2.5 ML NEBU INH PRN (18:05)
[2019-01-14] MEDS ORDERED: MAGNESIUM OXIDE 400 MG TAB PO PRN (18:05)
[2019-01-14] MEDS ORDERED: MAG SULF 2000 MG/WATER PREMIX 50 ML IV PRN (18:05)
[2019-01-14] MEDS ORDERED: ONDANSETRON 4 MG/2 ML VIAL IVP PRN (18:05)
[2019-01-14] MEDS ORDERED: DOCUSATE SODIUM 250 MG GELCAP PO PRN (18:05)
[2019-01-14] MEDS ORDERED: ALBUTEROL 0.083% 2.5 MG/3 ML NEBU INH PRN (18:05)
[2019-01-14] MEDS ORDERED: ALUMINUM HYD/MAG/SIMETHICONE 30 ML UDC PO PRN (18:05)
[2019-01-14] MEDS ORDERED: SODIUM PHOSPHATE 118 ML ENEM RC PRN (18:05)
[2019-01-14] MEDS ORDERED: BISACODYL 10 MG SUPP RC PRN (18:05)
[2019-01-14] MEDS ORDERED: DEXTROSE 50% 50 ML SYR IVP PRN (18:15)
--- NOTE | 2019-01-14 18:55 | NUR ---
Patient will be admitted to care of Dr Lamb. Admited to Tele. Will go to room 115. Belongings list completed. Report to GILLIAN Sood.
--- NOTE | 2019-01-14 19:10 | NUR ---
ADMITTED THIS 83 YEAR OLD MALE PER ANTONIO FROM ER WITH CC OF FEVER AND BODY ACHES, VITAL SIGNS STABLE, AFEBRILE, MEDICAL HX OBTAINED WITH ASSIST FROM [employer] ENGINEER FIRST ASSISTANT NISH #[id number], PT DENIES ANY PAIN AT THIS TIME, WITH LEFT UROSTOMY SITE NOTED ATTACHED TO LEG BAG, EMPTIED 300ML STRAW COLORED URINE OUTPUT, ORIENTED TO ROOM AND CALL LIGHT, SAFETY MEASURES IN PLACE, SIDE RAILS UP AND BED ALARM ON, CALL LIGHT WITHIN REACH.
[2019-01-14] MEDS: NACL 0.9% 1,000 ML IV SCH (19:48)
[2019-01-14 19:50] VITALS: BP 124/47
[2019-01-14] MEDS: INSULIN LISPRO SLIDING SCALE 100 UNITS/ML VIAL SUBQ PRN (20:31)
[2019-01-14] MEDS: BLOOD GLUCOSE MONITORING 1 DEV DEV FS SCH (20:32)
--- NOTE | 2019-01-14 20:35 | NUR ---
BLOOD SUGAR CHECKED WITH 165 RESULT, COVERAGE GIVEN, SANDWICH PROVIDED, CONSUMED 100%, IVF OF NS 75ML/H STARTED, ALL NEEDS ATTENDED.
--- NOTE | 2019-01-14 21:15 | NUR ---
PT ASSISTED TO BR AND HAD LOOSE BROWN STOOL SMALL AMOUNT, PT STATED NO DIARRHEA EPISODE AT HOME, MONITORED CLOSELY.
--- NOTE | 2019-01-14 22:55 | NUR ---
PT ASSISTED TO BR AND 2ND BM OF LOOSE STOOL NOTED, PAGED DR ADAM COVERING FOR DR ALCARAZ, WITH ORDER TO COLLECT STOOL FOR C-DIFF AND IF NEGATIVE THEN CAN START ON IMODIUM.
[2019-01-14] MEDS ORDERED: PIPERACILLIN/TAZOBACTAM 2.25 GM VIAL IV ONE (23:26)
[2019-01-14] MEDS: PIPERACILLIN/TAZOBACTAM 2.25 GM in DEXTROSE 5% 50 ML IV SCH (23:32)
[2019-01-15] VITALS: BP 125/53
--- NOTE | 2019-01-15 01:30 | NUR ---
PT ASSISTED TO BR, 3RD BM WITH SEMI-SOFT STOOL, WILL COLLECT STOOL IF NEXT BM IS LOOSE OR WATERY STOOL, [employer] TRANSPORTATION DRIVER LINDA MADE AWARE, MONITORED CLOSELY.
[2019-01-15 04:00] VITALS: BP 128/58
--- NOTE | 2019-01-15 04:00 | NUR ---
PT SEEN SLEEPING WITH HEAD UNDER THE BLANKET, EASILY AROUSABLE, VITAL SIGNS STABLE, DENIES ANY PAIN, IVF INFUSING WELL, MONITORED CLOSELY.
[2019-01-15] MEDS ORDERED: PIPERACILLIN/TAZOBACTAM 2.25 GM VIAL IV ONE (05:09)
[2019-01-15] MEDS: PIPERACILLIN/TAZOBACTAM 2.25 GM in DEXTROSE 5% 50 ML IV SCH (05:15)
--- NOTE | 2019-01-15 05:40 | NUR ---
BLOOD SUGAR CHECKED WITH 135 RESULT, NO COVERAGE NEEDED, IV ANTIBIOTIC INFUSING WELL, UROSTOMY DRAINAGE TOTAL OF 900ML, DENIES ANY PAIN, MONITORED CLOSELY.
[2019-01-15] MEDS: BLOOD GLUCOSE MONITORING 1 DEV DEV FS SCH ×4 (06:55→21:11)
--- NOTE | 2019-01-15 07:14 | NUR ---
PT SLEEPING, EASILY AROUSABLE, NO DISTRESS NOTED, BEDSIDE REPORT GIVEN TO GILLIAN VENTURA FOR CONTINUITY OF CARE.
--- NOTE | 2019-01-15 07:18 | NUR ---
RECEIVED BED SIDE REPORT FROM CIGARETTE MACHINE OPERATOR RN. PT IN STABLE CONDITION, CURRENTLY SLEEPING WITH BLANKET OVER HIM, WOKE PT UP, ALERT AND ORIENTED, [place] SPEAKING ONLY, SKIN INTACT, UROSTOMY IN LLQ DRAINING WELL 300CC INTO BAG DARK YELLOW, STRONG ODOR, WILL CONTINUE TO MONITOR
[2019-01-15 07:35] LABS: CHLORIDE 107 mmol/L (98-107); CREATININE 1.4 mg/dL (0.7-1.3); GLUCOSE 137 mg/dL (74-106); SODIUM SERUM 139 mmol/L (136-145); UREA NITROGEN, BLOOD 19 mg/dL (7-18)
[2019-01-15 07:39] LABS: BASOPHILS % (AUTO) 0.1 % (0.0-2.0); EOSINOPHILS % (AUTO) 0.1 % (0.0-4.0); HEMATOCRIT 30.3 % (36-52); HEMOGLOBIN 10.2 g/dL (12.0-18.0); LYMPHOCYTES # (AUTO) 0.9 K/uL (2.0-11.5); LYMPHOCYTES % (AUTO) 9.2 % (20.5-51.1); MEAN CORPUSCULAR HEMOGLOBIN 32 pg (27-31); MEAN CORPUSCULAR HGB CONC 34 g/dL (33-37); MEAN CORPUSCULAR VOLUME 93.7 fL (80-94); MONOCYTES # (AUTO) 0.4 K/uL (0.8-1.0); MONOCYTES % (AUTO) 4.4 % (1.7-9.3); NEUTROPHILS # (AUTO) 8.7 K/uL (1.8-7.7); NEUTROPHILS % (AUTO) 86.2 % (42.2-75.2); PLATELET COUNT (AUTO) 154 K/uL (140-450); RED BLOOD CELL COUNT(AUTO) 3.23 MIL/uL (4.20-6.10); WHITE BLOOD COUNT (AUTO) 10.1 K/uL (4.8-10.8)
[2019-01-15 08:00] VITALS: BP 114/50
--- NOTE | 2019-01-15 08:44 | NUR ---
PATIENT HAS BEEN SCREENED AND CATEGORIZED HIGH NUTRITION RISK. PATIENT WILL BE SEEN WITHIN 1-2 DAYS OF ADMISSION. 01/15/19-01/16/[address]
[2019-01-15] MEDS: glipiZIDE 5 MG TAB PO SCH (08:52)
[2019-01-15] MEDS: ASPIRIN 81 MG TAB.CHEW PO SCH (08:52)
[2019-01-15] MEDS: METOPROLOL SUCCINATE 50 MG TABER PO SCH (08:52)
[2019-01-15] MEDS: guaiFENesin DM 200/20 MG-10 ML 10 ML UDC PO PRN ×2 (08:58→16:05)
--- NOTE | 2019-01-15 09:15 | NUR ---
CHANGED PT'S UROSTOMY BAG, 300CC DARK URINE WITH MUCUS SEDIMENTS PRESENT, STRONG ODOR, STOMA PINK AND MOIST, PT TOLERATED PROCEDURE WELL, WILL CONTINUE TO MONITOR
--- NOTE | 2019-01-15 10:45 | NUR ---
PT HAD BMX1 ON THE TOILET, YELLOW FORMED STOOL. NO SIGNS OF DIARRHEA.
[2019-01-15] MEDS: NACL 0.9% 1,000 ML IV SCH (10:50)
[2019-01-15 12:00] VITALS: BP 133/59
[2019-01-15] MEDS: PIPER/TAZO 2.25GM/D5W PREMIX 50 ML IV SCH ×2 (12:35→16:55)
--- NOTE | 2019-01-15 12:51 | NUR ---
KELSI MORRIS, PT EATING LUNCH, ON RA IN NO DISTRESS, BED ALARM ON, CALL LIGHT WITHIN REACH, WILL CONTINUE TO MONITOR
[2019-01-15 16:00] VITALS: BP 135/52
--- NOTE | 2019-01-15 16:35 | NUR ---
PT HAD SMALL BMX1, BROWN FORMED STOOL.
--- NOTE | 2019-01-15 19:39 | NUR ---
GAVE BED SIDE REPORT TO CROCHET BEADER RN, PT IN STABLE CONDITION
--- NOTE | 2019-01-15 19:40 | NUR ---
RECEIVED BEDSIDE REPORT FROM RADHA GALAVIZ RN. PATIENT IN STABLE CONDITION, NO SIGNS OF DISTRESS ON RA AND SAFETY PRECAUTIONS IN PLACE.
[2019-01-15 20:00] VITALS: BP 147/59
[2019-01-15] MEDS: INSULIN LISPRO SLIDING SCALE 100 UNITS/ML VIAL SUBQ PRN (21:14)
--- NOTE | 2019-01-15 21:16 | NUR ---
ADMINISTERED SCHEDULED MEDICATIONS, PATIENT TOLERATED WELL, NO SIGNS OF DISTRESS ON RA. SAFETY PRECAUTIONS IN PLACE.
[2019-01-16] VITALS: BP 135/55
[2019-01-16] MEDS: NACL 0.9% 1,000 ML IV SCH ×2 (00:28→10:15)
[2019-01-16] MEDS: PIPER/TAZO 2.25GM/D5W PREMIX 50 ML IV SCH ×3 (00:28→12:01)
--- NOTE | 2019-01-16 00:35 | NUR ---
ADMINISTERED SCHEDULED MEDICATIONS. PATIENT RESTING IN BED BUT AWAKE. VITALS STABLE. CALL LIGHT IN REACH SAFETY PRECAUTIONS IN PLACE. WILL CONTINUE TO MONITOR.
--- NOTE | 2019-01-16 02:30 | NUR ---
PATIENT SLEEPING, NO SIGNS OF DISTRESS ON RA. SAFETY PRECAUTIONS IN PLACE, CALL LIGHT IN REACH.
[2019-01-16 04:00] VITALS: BP 159/65
--- NOTE | 2019-01-16 04:20 | NUR ---
PATIENT SLEEPING, BED LOW, NO SIGNS OF DISTRESS, CALL LIGHT IN REACH.
[2019-01-16] MEDS: BLOOD GLUCOSE MONITORING 1 DEV DEV FS SCH ×2 (06:42→11:58)
--- NOTE | 2019-01-16 06:44 | NUR ---
ADMINISTERED SCHEDULED MEDICATIONS. PATIENT IN STABLE CONDITION. WILL ENDORSE TO DAY SHIFT RN FOR CONTINUITY OF CARE.
--- NOTE | 2019-01-16 07:10 | NUR ---
GAVE BEDSIDE REPORT TO DAY SHIFT RN, PATIENT IN STABLE CONDITION.
--- NOTE | 2019-01-16 07:18 | NUR ---
RECEIVED BED SIDE REPORT FROM CASTING ROOM HELPER RN. PT NEEDED TO USE RESTROOM, HELPED PT TO BATHROOM, IN NO DISTRESS, WILL CONTINUE TO MONITOR
[2019-01-16] MEDS: INSULIN LISPRO SLIDING SCALE 100 UNITS/ML VIAL SUBQ PRN (07:24)
[2019-01-16 08:00] VITALS: BP 151/62
[2019-01-16] MEDS: glipiZIDE 5 MG TAB PO SCH (08:04)
[2019-01-16] MEDS: METOPROLOL SUCCINATE 50 MG TABER PO SCH (08:04)
[2019-01-16] MEDS: ASPIRIN 81 MG TAB.CHEW PO SCH (08:04)
[2019-01-16 12:00] VITALS: BP 155/68
[2019-01-16] MEDS ORDERED: LEVO750T2 PO (12:24)
--- NOTE | 2019-01-16 12:33 | NUR ---
CALLED DAUGHTER IN LAW YULISA MONTAGUE ABOUT PT BEING DC HOME TODAY. YULISA CONFIRMED SHE WILL SALES REPRESENTATIVE PUBLICATIONS PT WITH HER AROUND 1500 TODAY.
--- NOTE | 2019-01-16 14:23 | NUR ---
01/16/19 RD INITIAL ASSESSMENT COMPLETED PLEASE REFER TO NUTRITION ASSESSMENT UNDER CARE ACTIVITY FOR ESTIMATED NUTRITIONAL NEEDS. 1. CONTINUE CCHO 60 GM DIET TOLERATED 2. ENCOURAGE PO INTAKE >75% 3. RECOMMEND GLUCERNA BID 4. RD TO FOLLOW-UP 3-5 DAYS, MODERATE RISK SHOAIB CHEEK, RD
--- NOTE | 2019-01-16 16:05 | NUR ---
SON AND DAUGHTER IN LAW CAME TO AUTO DEALER PT. GOT PT OFF TELE MONITOR. CUT NAME WRISTBAND, UROSTOMY LEG BAG ATTACHED. EDUCATED PT ON THE MEDS TO CONTINUE TO TAKE (LEVAQUIN), CONTINUE CURRENT HOME MEDS AND TO STOP KEFLEX PER MD ORDER. PT AND FAMILY UNDERSTOOD. PT IN STABLE CONDITION, PT WHEELED OUT VIA WHEELCHAIR IN NO DISTRESS.
== END 2019-01-16 16:49 | disposition home or self-care (01) | DRG 720 ==
LOC: MED 15:46 → MTU 18:11
PROVIDERS: ADMIT Internal Medicine Pulmonary Disease; ATTEND Internal Medicine Pulmonary Disease
DX: A41.9 Sepsis, unspecified organism (principal); N17.0 Acute kidney failure with tubular necrosis; J18.9 Pneumonia, unspecified organism; E11.9 Type 2 diabetes mellitus without complications; N13.9 Obstructive and reflux uropathy, unspecified; N39.0 Urinary tract infection, site not specified; I10 Essential (primary) hypertension; Z85.46 Personal history of malignant neoplasm of prostate; I12.9 Hypertensive chronic kidney disease with stage 1 through stage 4 chronic kidney disease, or unspecified chronic kidney disease; N18.2 Chronic kidney disease, stage 2 (mild)
CPT/HCPCS: 36415; 70450; 71045; 80048; 80053; 81001; 82948; 83605; 83690; 83880; 84484; 85025; 85610; 87040; 87081; 87086; 87186; 93005; 96365; 97116; 97161-GP; 97530; 99291; C1758; J1815; J1956; J2543; J7030; J7060; Q0092

== ENCOUNTER 2019-01-30 05:18 | Inpatient (IN) | payer OTHER, MEDICARE ==
[~2019-01-30] VITALS: Ht 152.4 cm; Wt 47.6 kg
[~2019-01-30 05:18] MED LIST changes: -CEPH250C16 PO; +LEVO750T2 PO
--- NOTE | 2019-01-30 05:21 | NUR ---
PT TAKEN TO BED 11
[2019-01-30 05:23] VITALS: BP 104/54
[2019-01-30] MEDS ORDERED: LEVO250T71 PO (05:30)
--- NOTE | 2019-01-30 05:32 | NUR ---
Dr. Osei evaluating patient at bedside.
--- NOTE | 2019-01-30 05:35 | NUR ---
83/M BIB DAUGHTER, C/O SUBJECTIVE FEVER AND WORSENING GENERALIZED WEAKNESS. REPORTS FALL 2 DAYS AGO, IMPACT TO R SHOULDER AND R WRIST, C/O 10/10 PAIN, +CMS. AOX4, GCS 15, PERRLA 3MM, SKIN NORMAL LOOSE AND DRY, SPO2 95% ON RA, RR 36 EVEN AND TACHYPNIC, LUNG SOUNDS CLEAR BL. HR 111 EVEN, REGULAR, TACHYCARDIC. BS ACTIVE X4, ABD SOFT FLAT NONTENDER. UROSTOMY NOTED DRAINING TO BENEDICT BAG WITH CLOUDY YELLOW URINE. TEMP 99.3 AT THIS TIME. HX DM, HTN, KIDNEY FAILURE, BLADDER AND PROSTATE CA, UROSTOMY OTC TYLENOL 1 HR AGO
--- NOTE | 2019-01-30 05:35 | NUR ---
BRUISING NOTED ON R ELBOW AND R WRIST
[2019-01-30] MEDS ORDERED: NACL 0.9% 1,500 ML IV ONE (05:37)
[2019-01-30] MEDS ORDERED: PIPERACILLIN/TAZOBACTAM 3.375 GM in DEXTROSE 5% 50 ML IV ONE (05:40)
--- NOTE | 2019-01-30 05:50 | NUR ---
EKG PERFORMED AT BEDSIDE.
--- NOTE | 2019-01-30 05:58 | NUR ---
X-Ray at bedside.
[2019-01-30 06:14] LABS: PROTHROMBIN TIME 11.1 secs (10.8-13.4)
[2019-01-30] MEDS ORDERED: PIPERACILLIN/TAZOBACTAM 3.375 GM VIAL IV ONE (06:14)
[2019-01-30 06:15] LABS: ANION GAP 17.5 (8-16); CARBON DIOXIDE 21.8 mmol/L (21-32); CHLORIDE 107 mmol/L (98-107); CREATININE 2.4 mg/dL (0.7-1.3); GLUCOSE 192 mg/dL (74-106); POTASSIUM 3.3 mmol/L (3.5-5.1); SODIUM SERUM 143 mmol/L (136-145); UREA NITROGEN, BLOOD 37 mg/dL (7-18)
[2019-01-30 06:19] LABS: ALBUMIN 2.7 g/dL (3.4-5.0); ASPARTATE AMINOTRANSFERASE 54 U/L (15-37); LIPASE 87 U/L (73-393); TOTAL BILIRUBIN 0.6 mg/dL (0.0-1.0)
[2019-01-30 06:22] LABS: APPEARANCE,URINE CLOUDY (CLEAR); BILIRUBIN,URINE NEGATIVE (NEGATIVE); BLOOD, URINE 3+ (NEGATIVE); COLOR,URINE YELLOW (YELLOW); LEUKOCYTE ESTERASE ,URINE 2+ (NEGATIVE); NITRITE, URINE NEGATIVE (NEGATIVE); UGLUCOSE NEGATIVE (NEGATIVE)
[2019-01-30 06:39] LABS: HEMATOCRIT 32.4 % (36-52); HEMOGLOBIN 10.8 g/dL (12.0-18.0); LYMPHOCYTES # (AUTO) 0.1 K/uL (2.0-11.5); LYMPHOCYTES % (AUTO) 0.9 % (20.5-51.1); MEAN CORPUSCULAR HEMOGLOBIN 31 pg (27-31); MEAN CORPUSCULAR HGB CONC 33 g/dL (33-37); MEAN CORPUSCULAR VOLUME 92.1 fL (80-94); MONOCYTES # (AUTO) 0.2 K/uL (0.8-1.0); MONOCYTES % (AUTO) 1.2 % (1.7-9.3); NEUTROPHILS # (AUTO) 14.9 K/uL (1.8-7.7); NEUTROPHILS % (AUTO) 97.9 % (42.2-75.2); PLATELET COUNT (AUTO) 233 K/uL (140-450); RED BLOOD CELL COUNT(AUTO) 3.52 MIL/uL (4.20-6.10); RED CELL DISTRIBUTION WIDTH 14.8 % (11.6-13.7); WHITE BLOOD COUNT (AUTO) 15.2 K/uL (4.8-10.8)
[2019-01-30] MEDS ORDERED: KCL 20 MEQ/WATER INJ PREMIX 100 ML IV ONE (06:40)
[2019-01-30 06:43] LABS: RBC,URINE 0-5 /HPF (0-5); WBC,URINE TOO MANY TO COUNT /HPF (0-5)
--- NOTE | 2019-01-30 06:57 | NUR ---
PT LAYING IN BED, RR EVEN AND UNLABORED. VSS. ALL NEEDS MET AT THIS TIME.
--- NOTE | 2019-01-30 07:00 | NUR ---
REPORT FROM GILLIAN CHÁVEZ. PT RESTING COMFORTABLY. A&OX4, BREATHING EVEN AND UNLABORED. NSR ON MONITOR. PT DENIES PAIN. DARK PURPLE BRUISING NOTED TO RUE. PT STS HE FELL TWICE YESTERDAY WITHOUT LOC. PT HAS UROSTOMY, WITH APPROX 50 ML PALE URINE IN BAG. 20G IV NOTED TO LFA, 20 MEQ POTASSIUM INFUSING WITHOUT INCIDENT. PT AWAITING ADMISSION.
--- NOTE | 2019-01-30 07:05 | NUR ---
DARK PURPLE BRUISING ALSO NOTED TO RIGHT HIP.
--- NOTE | 2019-01-30 07:06 | NUR ---
Pt report given to ANDERSON FRENCH AND HANNAH FRENCH. Transfer of care at this time.
--- NOTE | 2019-01-30 07:15 | NUR ---
PT C/O PAIN TO L FA DUE TO POTASSIUM INFUSION. RATE CHANGED TO 30 ML/HR. PT TOLERATING INFUSION AT THIS TIME.
[2019-01-30] MEDS ORDERED: ACETAMINOPHEN 325 MG TAB PO PRN (07:55)
[2019-01-30] MEDS ORDERED: ONDANSETRON 4 MG/2 ML VIAL IVP PRN (07:55)
[2019-01-30] MEDS ORDERED: MORPHINE SULFATE 4 MG/ML SYR IVP PRN (07:55)
--- NOTE | 2019-01-30 08:30 | NUR ---
PT RESTING QUIETLY, BREATHING EVEN AND UNLABORED. EQUAL CHEST RISE AND FALL. NSR ON MONITOR. PT DENIES PAIN. CONTINUE TO MONITOR.
[2019-01-30 09:35] VITALS: BP 105/48
--- NOTE | 2019-01-30 09:37 | NUR ---
Patient will be admitted to care of DR. CARTER. Admited to [facility]. Will go to room 118. Belongings list completed. Report to IGLLIAN JAY.
[2019-01-30] MEDS: ASPIRIN 81 MG TAB.CHEW PO SCH (09:48)
[2019-01-30] MEDS: glipiZIDE 5 MG TAB PO SCH (09:48)
[2019-01-30] MEDS ORDERED: DEXTROSE 50% 50 ML SYR IVP PRN (09:50)
[2019-01-30] MEDS: NACL 0.9% 1,000 ML IV SCH ×2 (10:13→20:41)
--- NOTE | 2019-01-30 10:55 | NUR ---
PT ASSISTED TO BATHROOM.
[2019-01-30] MEDS: BLOOD GLUCOSE MONITORING 1 DEV DEV FS SCH ×3 (11:30→20:44)
--- NOTE | 2019-01-30 11:30 | NUR ---
PT VERBALIZED PERMISSION TO SPEAK TO HIS DAUGHTER IN LAW YULISA HILTON FOR ADMISSION QUESTIONS.
--- NOTE | 2019-01-30 11:35 | NUR ---
SPOKE WITH DAUGHTER IN LAW YULISA HILTON [phone] FOR ADMISSION QUESTIONS.
[2019-01-30 12:00] VITALS: BP 98/48
[2019-01-30] MEDS: INSULIN LISPRO SLIDING SCALE 100 UNITS/ML VIAL SUBQ PRN ×2 (13:07→17:22)
--- NOTE | 2019-01-30 13:12 | NUR ---
PARAMJIT FROM [facility] [phone] CALLED AND STATED THAT PATIENT WAS UNDER THEIR CARE PRIOR TO HOSPITALIZATION.
--- NOTE | 2019-01-30 14:20 | NUR ---
PT ASSISTED UP TO BATHROOM.
[2019-01-30] MEDS: HYDROcodone/APAP 5/325 MG 1 TAB TAB PO PRN (15:38)
--- NOTE | 2019-01-30 15:44 | NUR ---
PT C/O RIGHT UPPER ARM AND RIGHT SHOULDER PAIN, NORCO GIVEN PER PRN ORDER.
[2019-01-30 16:00] VITALS: BP 120/41
--- NOTE | 2019-01-30 16:30 | NUR ---
PT STATES RIGHT ARM AND SHOULDER PAIN HAS RESOLVED AFTER NORCO.
--- NOTE | 2019-01-30 16:44 | NUR ---
DR CARTER AT BEDSIDE
--- NOTE | 2019-01-30 17:04 | NUR ---
PT ASSISTED UP TO BATHROOM, NEEDS FULL ASSIST, UNSTEADY ON HIS FEET, BED ALARM ON, CALL IVERSON WITHIN REACH, WILL CONTINUE TO MONITOR.
--- NOTE | 2019-01-30 18:02 | NUR ---
SON AT BEDSIDE, PT RESTING QUIETLY IN NAD, DENIES ANY IMMEDIATE NEEDS.
--- NOTE | 2019-01-30 19:28 | NUR ---
REPORT GIVEN TO CAMPAIGN COORDINATOR NURSE, PT IN STABLE CONDITION.
--- NOTE | 2019-01-30 19:30 | NUR ---
Received endorsement from AM shift RN; patient is A/Ox4, able to make needs known, Polish speaking only, able to ambulate with 1-person assist. Introduced self, updated board. No SOB or distress noted, on room air. IV site on left forearm, 20 gauge, infusing IVF at 75mL/hr. Skin intact, but noted with right elbow and right hip bruise. Patient has urostomy bag left lower quadrant. Bed in the lowest position, call light within reach. Initial assessment done. Will continue to monitor.
[2019-01-30 20:00] VITALS: BP 96/50
--- NOTE | 2019-01-30 20:20 | NUR ---
Vitals taken, no distress noted.
--- NOTE | 2019-01-30 21:30 | NUR ---
Due meds given, tolerated well.
--- NOTE | 2019-01-30 23:30 | NUR ---
Vitals taken; no SOB or distress noted.
[2019-01-31] VITALS: BP 116/47
--- NOTE | 2019-01-31 02:20 | NUR ---
Frequent checks made; patient asleep visible chest rise and fall noted.
[2019-01-31 04:00] VITALS: BP 117/58
--- NOTE | 2019-01-31 04:40 | NUR ---
Vitals taken, no distress noted.
[2019-01-31] MEDS: BLOOD GLUCOSE MONITORING 1 DEV DEV FS SCH ×4 (07:07→20:51)
--- NOTE | 2019-01-31 07:15 | NUR ---
Endorsed patient to AM shift RN for continuity of care; patient in stable condition.
--- NOTE | 2019-01-31 07:16 | NUR ---
RECEIVED BEDSIDE REPORT FROM PICK PULLING MACHINE TENDER NURSE. PATIENT IS AWAKE, ALERT AND ORIENTEDX4. NO SIGNS OF DISTRESS ON RA. SKIN IS INTACT. AMBULATE W ASSIST. FALL RISK IN PLACE S/P FALLX2. BRUISE ON R ARM AND R HIP. L FA 22G INFUSING NS AT 75. CLEAN, DRY AND INTACT. PATIENT IS CONTINENT. BED IN LOW POSITION. CALL LIGHT WITHIN REACH. WILL CONTINUE TO MONITOR THE PATIENT. PATIENT ABLE TO MAKE NEEDS KNOWN.
[2019-01-31 07:38] LABS: EOSINOPHILS % (AUTO) 0.2 % (0.0-4.0); HEMATOCRIT 30.4 % (36-52); HEMOGLOBIN 10.1 g/dL (12.0-18.0); LYMPHOCYTES % (AUTO) 6.9 % (20.5-51.1); MEAN CORPUSCULAR HEMOGLOBIN 31 pg (27-31); MEAN CORPUSCULAR HGB CONC 33 g/dL (33-37); MEAN CORPUSCULAR VOLUME 92.6 fL (80-94); MONOCYTES # (AUTO) 0.3 K/uL (0.8-1.0); MONOCYTES % (AUTO) 2.2 % (1.7-9.3); NEUTROPHILS # (AUTO) 13.4 K/uL (1.8-7.7); NEUTROPHILS % (AUTO) 90.7 % (42.2-75.2); PLATELET COUNT (AUTO) 175 K/uL (140-450); RED BLOOD CELL COUNT(AUTO) 3.28 MIL/uL (4.20-6.10); RED CELL DISTRIBUTION WIDTH 15.2 % (11.6-13.7); WHITE BLOOD COUNT (AUTO) 14.7 K/uL (4.8-10.8)
[2019-01-31 08:00] VITALS: BP 126/55
[2019-01-31 08:00] LABS: ANION GAP 14.9 (8-16); CARBON DIOXIDE 21.9 mmol/L (21-32); CHLORIDE 106 mmol/L (98-107); GLUCOSE 115 mg/dL (74-106); POTASSIUM 3.8 mmol/L (3.5-5.1); SODIUM SERUM 139 mmol/L (136-145); UREA NITROGEN, BLOOD 25 mg/dL (7-18)
[2019-01-31 08:01] LABS: MAGNESIUM 2.1 mg/dL (1.8-2.4); PHOSPHORUS 2.2 mg/dL (2.5-4.9)
--- NOTE | 2019-01-31 08:02 | NUR ---
PATIENT HAS BEEN SCREENED AND CATEGORIZED HIGH NUTRITION RISK. PATIENT WILL BE SEEN WITHIN 1-2 DAYS OF ADMISSION. 01/31/[address]
[2019-01-31] MEDS: ASPIRIN 81 MG TAB.CHEW PO SCH (09:45)
[2019-01-31] MEDS: glipiZIDE 5 MG TAB PO SCH (09:46)
--- NOTE | 2019-01-31 09:55 | NUR ---
ADMINISTERED MEDS. EDUCATED ON SIDE EFFECTS. PATIENT TOLERATED WELL. WILL CONTINUE TO MONITOR THE PATIENT
--- NOTE | 2019-01-31 10:10 | NUR ---
PATIENT IS SLEEPING. NO SIGNS OF DISTRESS. WILL CONTINUE TO MONITOR THE PATIENT.
[2019-01-31] MEDS: NACL 0.9% 1,000 ML IV SCH ×2 (11:14→22:50)
[2019-01-31 12:00] VITALS: BP 141/68
[2019-01-31] MEDS: INSULIN LISPRO SLIDING SCALE 100 UNITS/ML VIAL SUBQ PRN ×2 (12:05→20:54)
--- NOTE | 2019-01-31 12:05 | NUR ---
ADMINISTERED MEDS. EDUCATED ON SIDE EFFECTS. PATIENT VERBALIZED UNDERSTANDING. WILL CONTINUE TO MONITOR THE PATIENT
--- NOTE | 2019-01-31 13:56 | NUR ---
PATIENT CLEANING DENTURES AT THIS TIME. WILL CONTINUE TO MONITOR THE PATIENT.
--- NOTE | 2019-01-31 14:50 | NUR ---
patient asked me to lower head of bed. bed lowered. will continue to monitor the patient
--- NOTE | 2019-01-31 14:51 | NUR ---
01/31/19 RD INITIAL ASSESSMENT COMPLETED PLEASE REFER TO NUTRITION ASSESSMENT UNDER CARE ACTIVITY FOR ESTIMATED NUTRITIONAL NEEDS. 1. CONTINUE CCHO 60 GM DIET TOLERATED 2. RECOMMEND GLUCERNA BID 3. RD TO FOLLOW-UP 2-3 DAYS, HIGH RISK SHOAIB CHEEK, RD
[2019-01-31 16:00] VITALS: BP 125/56
--- NOTE | 2019-01-31 16:39 | NUR ---
PATIENT SITTING IN BED. NO SIGNS OF DISTRESS. BS GOOD 142
--- NOTE | 2019-01-31 18:42 | NUR ---
PATIENT IN BED. NO SIGNS OF DISTRESS. BED IN LOW POSITION. CALL LIGHT WITHIN REACH.
--- NOTE | 2019-01-31 19:10 | NUR ---
GAVE BEDSIDE REPORT TO COMMUTATOR REPAIRER NURSE. PATIENT ENDORSED IN STABLE CONDITION
--- NOTE | 2019-01-31 19:11 | NUR ---
REPORT RECEIVED FROM AM NURSE AT BEDSIDE. PT IN STABLE CONDITION. AAOX4. INTRODUCED SELF TO PT. BOARD UPDATED. NO COMPLAINTS OF PAIN. NO SOB. AFEBRILE. IV SITE L FA 20G RUNNING NS@75ML/HR PATENT AND INTACT. SKIN WARM, DRY, AND INTACT WITH NO OPEN WOUNDS. PT IS AMBULATORY WITH ASSIST. BED LOCKED IN LOW POSITION. CALL IVERSON WITHIN REACH. SAFETY PRECAUTION IN PLACE. ALL NEEDS MET AT THIS TIME. Addendum: 02/01/19 at 0213 by Brian Hartmann RN UROSTOMY IN PLACE.
[2019-01-31 20:00] VITALS: BP 136/60
--- NOTE | 2019-01-31 20:46 | NUR ---
HEPARIN GIVEN SUBQ. BS 152. 2 UNITS OF HUMALOG GIVEN.
--- NOTE | 2019-01-31 22:00 | NUR ---
PT SLEEPING COMFORTABLY IN BED LEFT LATERAL. NO S/S OF DISTRESS NOTED. WILL CONTINUE TO MONITOR.
--- NOTE | 2019-01-31 23:30 | NUR ---
PT VS STABLE. NO S/S OF DISTRESS NOTED. PT SLEEPING BUT AROUSABLE FOR VS CHECK. WILL CONTINUE TO MONITOR.
[2019-02-01] VITALS: BP 144/59
--- NOTE | 2019-02-01 00:55 | NUR ---
PT SLEEPING COMFORTABLY IN BED. NO S/S OF DISTRESS NOTED. WILL CONTINUE TO MONITOR.
--- NOTE | 2019-02-01 02:25 | NUR ---
PT SLEEPING COMFORTABLY IN BED. NO S/S OF DISTRESS NOTED. NO COMPLAINTS OF PAIN. NO SOB. AFEBRILE. WILL CONTINUE TO MONITOR.
--- NOTE | 2019-02-01 03:40 | NUR ---
PT SLEEPING COMFORTABLY SUPINE BUT AROUSABLE. NO S/S OF DISTRESS NOTED. RESPIRATIONS EVEN, UNLABORED, AND WNL. WILL CONTINUE TO MONITOR.
[2019-02-01 04:00] VITALS: BP 130/53
[2019-02-01] MEDS: BLOOD GLUCOSE MONITORING 1 DEV DEV FS SCH ×4 (05:57→20:42)
--- NOTE | 2019-02-01 05:57 | NUR ---
BS 77. NO INSULIN COVERAGE REQUIRED.
--- NOTE | 2019-02-01 07:20 | NUR ---
REPORT GIVEN TO AM NURSE AT BEDSIDE. PT IN STABLE CONDITION.
--- NOTE | 2019-02-01 07:25 | NUR ---
RECEIVED PT FROM HYPO SPLASHER NURSE, PT IS ASLEEP, COVERED WITH BLANKET, RESPIRATION IS EVEN, WAS AWAKEN, SIDE RAILS UP AND CALL LIGHT WITHIN REACH, FALL PRECAUTION INITIATED, BED ALARM ACTIVATED, PT HAS AN IV LINE ON T HE LEFT FA G. 20 WITH NS INFUSING AT 75ML/HR, INTACT, ON ROOM AIR, NO SIGN OF DISTRESS NOTED AND WILL MONITOR PT.
[2019-02-01 07:40] LABS: EOSINOPHILS % (AUTO) 0.2 % (0.0-4.0); HEMATOCRIT 26.8 % (36-52); LYMPHOCYTES # (AUTO) 0.7 K/uL (2.0-11.5); LYMPHOCYTES % (AUTO) 9.2 % (20.5-51.1); MEAN CORPUSCULAR HEMOGLOBIN 31 pg (27-31); MEAN CORPUSCULAR HGB CONC 34 g/dL (33-37); MEAN CORPUSCULAR VOLUME 92.7 fL (80-94); MONOCYTES # (AUTO) 0.3 K/uL (0.8-1.0); MONOCYTES % (AUTO) 3.5 % (1.7-9.3); NEUTROPHILS # (AUTO) 6.6 K/uL (1.8-7.7); NEUTROPHILS % (AUTO) 87.1 % (42.2-75.2); PLATELET COUNT (AUTO) 134 K/uL (140-450); RED BLOOD CELL COUNT(AUTO) 2.89 MIL/uL (4.20-6.10); RED CELL DISTRIBUTION WIDTH 14.9 % (11.6-13.7); WHITE BLOOD COUNT (AUTO) 7.6 K/uL (4.8-10.8)
--- NOTE | 2019-02-01 07:45 | NUR ---
PT IS AWAKE AND VITAL SIGNS CHECKED DONE, BP IS 132/60, PULSE IS 81, TEMP. IS 98.6, O2 SATURATION IS 97%, RESPIRATION IS 16/MIN, PT WAS ASSISTED TO BEDSIDE COMMODE, UROSTOMY IN PLACE AND DRAINED 400ML, PT MADE A BOWEL MOVEMENT, BARB IS SOFT, FORMED AND BLACKISH IN COLOR, MODERATE IN AMOUNT. PT WAS ASSISTED BACK TO BED AND MADE COMFORTABLE. NO SIGN OF DISTRESS NOTED AND PT DENIES PAIN. WILL MONITOR PT.
[2019-02-01 08:16] LABS: ANION GAP 15.5 (8-16); CARBON DIOXIDE 21.3 mmol/L (21-32); CHLORIDE 109 mmol/L (98-107); CREATININE 1.6 mg/dL (0.7-1.3); GLUCOSE 79 mg/dL (74-106); POTASSIUM 3.8 mmol/L (3.5-5.1); SODIUM SERUM 142 mmol/L (136-145); UREA NITROGEN, BLOOD 18 mg/dL (7-18)
[2019-02-01 08:19] LABS: MAGNESIUM 2.1 mg/dL (1.8-2.4); PHOSPHORUS 2.2 mg/dL (2.5-4.9)
[2019-02-01] MEDS: glipiZIDE 5 MG TAB PO SCH (09:12)
[2019-02-01] MEDS: ASPIRIN 81 MG TAB.CHEW PO SCH (09:12)
--- NOTE | 2019-02-01 09:19 | NUR ---
PT IS AWAKE AND SEATED ON THE BED, PARAMETER CHECKED AND PLATELET IS LOW, 134, HEPARIN NOT ADMINISTERED, ORAL MEDICATIONS WERE GIVEN AND PT TOLERATED IT, NO SIGN OF DISTRESS NOTED AND WILL CONTINUE TO MONITOR PT.
--- NOTE | 2019-02-01 10:10 | NUR ---
CALLED AND SPOKE TO GILLIAN FRAUSTO, INFORMED LISBET THAT PATIENT'S PRIMARY INSURANCE IS MEDICARE AND PATIENT NEEDS TO MAKE FOLLOW-UP APPOINTMENT UPON DISCHARGE, VERBALIZED UNDERSTANDING.
--- NOTE | 2019-02-01 10:10 | NUR ---
HARMAN HANNAH CALLED AND INFORMED THAT IF PT WILL BE DISCHARGE, PT SHOULD BE REMINDED TO MAKE A FOLLOW UP TO HIS PCP AND MEDICARE IS THE PRIMARY INSURANCE FOR THE PT.
[2019-02-01 12:00] VITALS: BP 131/54
[2019-02-01] MEDS: NACL 0.9% 1,000 ML IV SCH (12:48)
[2019-02-01] MEDS: INSULIN LISPRO SLIDING SCALE 100 UNITS/ML VIAL SUBQ PRN ×2 (12:59→20:45)
--- NOTE | 2019-02-01 13:01 | NUR ---
PT WAS GIVEN INSULIN 4 UNITS ON THE RT UA NOW FOR A BLOOD GLUCOSE OF 240.
--- NOTE | 2019-02-01 15:00 | NUR ---
ATTEMPTED TO DO AN ASSESSMENT ON THIS PATIENT, PATIENT SLEEPING AT THIS TIME.
[2019-02-01 16:00] VITALS: BP 146/57
--- NOTE | 2019-02-01 16:04 | NUR ---
ATTEMPTED AGAIN TO TALK TO THE PATIENT FOR ASSESSMENT BUT PT REFUSED TO DO IT AT THIS TIME.
--- NOTE | 2019-02-01 17:11 | NUR ---
PT IS AWAKE AND LYING ON THE BED, VITAL SIGNS CHECKED AND BP IS 146/57, PULSE IS 85, RESPIRATION IS 16/MIN AND O2 SATURATION IS 98%, TEMPERATURE IS HIGH AND IS 100.4, WILL MEDICATE. BLOOD GLUCOSE CHECK DONE AND RESULT IS 74, PT WAS GIVEN APPLE JUICE AND PT DRANK IT. WILL MONITOR PT.
--- NOTE | 2019-02-01 17:24 | NUR ---
PT WAS MEDI ATED NOW WITH TYLENOL FOR THE TEMPERATURE OF 100.4. WILL RE-ASSESS AND MONITOR PT.
--- NOTE | 2019-02-01 19:15 | NUR ---
ENDORSED PT TO GEOPHYSICAL SUPPORT SPECIALIST NURSE FOR CONTINUITY OF CARE.
--- NOTE | 2019-02-01 19:16 | NUR ---
REPORT RECEIVED FROM AM NURSE AT BEDSIDE. PT IN STABLE CONDITION. AAOX4. INTRODUCED SELF TO PT. BOARD UPDATED. PT IS AMBULATORY WITH 1 PERSON ASSIST. NO COMPLAINTS OF PAIN. NO SOB. AFEBRILE. PT IS CONTACT ISOLATION. PT HAS UROSTOMY. IV SITE L FA 20G RUNNING NS@75ML/HR PATENT AND INTACT. SKIN WARM, DRY, AND INTACT WITH NO OPEN WOUNDS. BED LOCKED IN LOW POSITION. CALL IVERSON WITHIN REACH. SAFETY PRECAUTION IN PLACE. ALL NEEDS MET AT THIS TIME.
[2019-02-01 20:00] VITALS: BP 114/49
--- NOTE | 2019-02-01 20:41 | NUR ---
HEPARIN GIVEN SUBQ. BS 243. 4 UNITS OF HUMALOG GIVEN.
--- NOTE | 2019-02-01 22:30 | NUR ---
PT SLEEPING COMFORTABLY IN BED BUT AROUSABLE. NO S/S OF DISTRESS NOTED. WILL CONTINUE TO MONITOR.
[2019-02-02] VITALS: BP 149/57
--- NOTE | 2019-02-02 00:05 | NUR ---
PATIENT APPEARS TO BE SLEEPING UPON VITAL SIGNS CHECK. PATIENT DENIES PAIN AT THIS TIME. ENCOURAGED TO EAT SNACKS. BED IN LOW POSITION, SIDE RAILS ARE UP, AND CALL LIGHT WITHIN REACH. WILL CONTINUE TO MONITOR PATIENT.
--- NOTE | 2019-02-02 01:25 | NUR ---
PATIENT APPEARS TO BE SLEEPING WITH NO SIGNS OF DISTRESS. WILL CONTINUE TO MONITOR PATIENT.
--- NOTE | 2019-02-02 02:20 | NUR ---
PATIENT IS LYING DOWN, APPEARS TO BE SLEEPING WITH NO SIGNS OF DISTRESS. WILL CONTINUE TO MONITOR PATIENT.
[2019-02-02] MEDS: NACL 0.9% 1,000 ML IV SCH ×2 (02:51→15:55)
[2019-02-02 04:00] VITALS: BP 139/48
--- NOTE | 2019-02-02 04:15 | NUR ---
PATIENT SLEEPING IN BED. VITALS SIGNS TAKEN. UROSTOMY BAG EMPTIED. PATIENT REFUSED SNACK WHEN OFFERED.
--- NOTE | 2019-02-02 04:50 | NUR ---
URINE CULTURE RETURNED BACK NEGATIVE FOR ESBL. PT BACK TO STANDARD PRECAUTION.
[2019-02-02] MEDS: BLOOD GLUCOSE MONITORING 1 DEV DEV FS SCH ×4 (05:30→21:47)
--- NOTE | 2019-02-02 07:18 | NUR ---
REPORT GIVEN TO AM NURSE AT BEDSIDE. PT IN STABLE CONDITION.
--- NOTE | 2019-02-02 07:19 | NUR ---
REPORT RECEIVED FROM BIOMETRIC TECHNICIAN NURSE AT BEDSIDE FOR CONTINUITY OF CARE. PT IN STABLE CONDITION. AAOX4, ROMANIAN SPEAKING. INTRODUCED SELF TO PT. BOARD UPDATED. PT IS AMBULATORY WITH 1 PERSON ASSIST WITH BSC. C/O PAIN ON RIGHT ARM, REQUEST FOR PRN PAIN MEDICATION. NO SOB. AFEBRILE. PT HAS UROSTOMY DRAINING YELLOW URINE. IV SITE L FA 20G RUNNING NS@75ML/HR, PATENT, INTACT, ASYMPTOMATIC. SKIN WARM, DRY, AND INTACT WITH NO OPEN WOUNDS. SAFETY PRECAUTIONS IN PLACE, BED LOCKED IN LOW POSITION. CALL IVERSON WITHIN REACH, WILL CONTINUE TO MONITOR PATIENT.
[2019-02-02] MEDS: HYDROcodone/APAP 5/325 MG 1 TAB TAB PO PRN ×2 (07:29→22:00)
--- NOTE | 2019-02-02 07:29 | NUR ---
PT C/O OF PAIN ON RIGHT ARM, REQUESTED PRN PAIN MEDICATION. PAIN MEDICATION GIVEN. PATIENT TOLERATING IT. INFORMED HIM OF PLAN OF CARE, HE VERBALIZED UNDERSTANDING. SAFETY PRECAUTION IN PLACE, CALL LIGHT WITHIN REACH, WILL CONTINUE TO MONITOR PATIENT.
[2019-02-02 08:00] VITALS: BP 130/45
[2019-02-02] MEDS: glipiZIDE 5 MG TAB PO SCH (08:41)
[2019-02-02] MEDS: ASPIRIN 81 MG TAB.CHEW PO SCH (08:41)
--- NOTE | 2019-02-02 08:51 | NUR ---
ORDERED MEDIATIONS GIVEN. PATIENT TOLERATING IT WELL. NO SIGNS OF DISTRESS NOTED ON RA. NO COMPLAINTS AT THIS TIME. SAFETY PRECAUTIONS IN PLACE, CALL LIGHT WITHIN REACH, WILL CONTINUE TO MONITOR PATIENT.
[2019-02-02 09:41] LABS: BASOPHILS % (AUTO) 0.1 % (0.0-2.0); EOSINOPHILS % (AUTO) 0.9 % (0.0-4.0); HEMOGLOBIN 10.2 g/dL (12.0-18.0); LYMPHOCYTES # (AUTO) 0.6 K/uL (2.0-11.5); LYMPHOCYTES % (AUTO) 14.8 % (20.5-51.1); MEAN CORPUSCULAR HEMOGLOBIN 31 pg (27-31); MEAN CORPUSCULAR HGB CONC 34 g/dL (33-37); MEAN CORPUSCULAR VOLUME 92.4 fL (80-94); MONOCYTES # (AUTO) 0.3 K/uL (0.8-1.0); MONOCYTES % (AUTO) 8.1 % (1.7-9.3); NEUTROPHILS # (AUTO) 2.9 K/uL (1.8-7.7); NEUTROPHILS % (AUTO) 76.1 % (42.2-75.2); PLATELET COUNT (AUTO) 138 K/uL (140-450); RED BLOOD CELL COUNT(AUTO) 3.25 MIL/uL (4.20-6.10); RED CELL DISTRIBUTION WIDTH 15.2 % (11.6-13.7); WHITE BLOOD COUNT (AUTO) 3.8 K/uL (4.8-10.8)
[2019-02-02 09:50] LABS: ANION GAP 11.4 (8-16); CARBON DIOXIDE 23.3 mmol/L (21-32); CHLORIDE 109 mmol/L (98-107); CREATININE 1.5 mg/dL (0.7-1.3); GLUCOSE 170 mg/dL (74-106); POTASSIUM 3.7 mmol/L (3.5-5.1); SODIUM SERUM 140 mmol/L (136-145); UREA NITROGEN, BLOOD 18 mg/dL (7-18)
[2019-02-02 09:56] LABS: PHOSPHORUS 2.4 mg/dL (2.5-4.9)
--- NOTE | 2019-02-02 10:10 | NUR ---
YULISA, DAUGHTER IN LAW, CALLED. UPDATED HER ON PATIENT'S STATUS. SHE VERBALIZED UNDERSTANDING AND STATED THAT SHE WILL BE IN LATER TO SEE PATIENT. WILL CONTINUE TO MONITOR PATIENT.
--- NOTE | 2019-02-02 10:30 | NUR ---
PATIENT WORKING WITH PHYSICAL THERAPY. WILL WAIT FOR THEIR RESULT AND RECOMMENDATION.
--- NOTE | 2019-02-02 11:41 | NUR ---
BLOOD SUGAR 134, NO COVERAGE NEEDED. PATIENT SITTING IN CHAIR AT SIDE OF BED, NO COMPLAINTS AT THIS TIME. SAFETY PRECAUTIONS IN PLACE, CALL LIGHT WITHIN REACH, WILL CONTINUE TO MONITOR PATIENT.
[2019-02-02 12:00] VITALS: BP 117/51
--- NOTE | 2019-02-02 14:15 | NUR ---
PATIENT RESTING IN BED, NO COMPLAINTS AT THIS TIME. SAFETY PRECAUTION IN PLACE, CALL LIGHT WITHIN REACH, WILL CONTINUE TO MONITOR PATIENT.
--- NOTE | 2019-02-02 14:38 | NUR ---
YULISA, PATIENT'S DAUGHTER IN LAW, AND SON CALLED. UPDATED THEM ABOUT PATIENT'S CONDITION. THEY ARE ON THE WAY TO SEE PATIENT. WILL CONTINUE TO MONITOR PATIENT.
--- NOTE | 2019-02-02 15:22 | NUR ---
02/02/19 RD FOLLOW UP COMPLETED PLEASE REFER TO NUTRITION PROGRESS NOTE UNDER CARE ACTIVITY FOR ESTIMATED NUTRITION NEEDS. RD RECOMMENDATIONS: 1. CONTINUE CCHO 60 GM DIET TOLERATED 2. CONTINUE GLUCERNA BID 3. ENCOURAGE ORAL AND GLUCERNA INTAKE FOR ADEQUATE NUTRITION INTAKE. 4. RD TO FOLLOW-UP 2-3 DAYS, HIGH RISK LENNY BERMUDEZ, RD
--- NOTE | 2019-02-02 15:50 | NUR ---
Refer to intervention for detailed information. It should be noted that SW informed nurse in regards to discharge plan/patient's family request for short term placement.
[2019-02-02] MEDS ORDERED: ACET-1182 PO (15:56)
[2019-02-02] MEDS ORDERED: ACET-9525 PO (15:56)
[2019-02-02] MEDS ORDERED: CEFT1SOL1 IV (15:56)
[2019-02-02 16:00] VITALS: BP 149/62
--- NOTE | 2019-02-02 16:07 | NUR ---
ANA met with patient at bedside. SW introduced himself to patient's son and daughter in law, Fabio and Patrizia. ANA provided resources to [facility] and Adult [facility] resources in [facility]. Dr. Rodrigez visited patient and verbalized his recommendation to receive PT at a SNF after discharge.
--- NOTE | 2019-02-02 16:15 | NUR ---
CONTACTED NAHUM OF [facility] AT [phone], INFORMING HER THAT DC PLAN FOR THE PATIENT IS TO SNF FOR PT AND IV ANTIBIOTIC. CLINICALS FAXED TO [phone]. AUTHORIZATION FOR TRANSPORT [id number]. SHE SAID PATIENT WILL GO TO [facility].
--- NOTE | 2019-02-02 16:35 | NUR ---
CALLED [facility] AT [phone], SPOKE TO YUSEF HANNAH. ALL CLINICALS FAXED. WILL FOLLOW UP.
[2019-02-02] MEDS: INSULIN LISPRO SLIDING SCALE 100 UNITS/ML VIAL SUBQ PRN ×2 (16:54→21:47)
--- NOTE | 2019-02-02 16:58 | NUR ---
CONTACT [facility] TO FOLLOW UP IF HE RECEIVED ALL CLINICALS. HE SAID HE IS STILL WAITING FOR IT. PROVIDED HIM WITH AUTH# [id number] FOR [facility] AND [id number] FOR FACILITY. ALSO PROVIDED HIM WITH UNIT'S PHONE NUMBER TO CONTACT.
--- NOTE | 2019-02-02 19:00 | NUR ---
REPORT GIVEN TO FANNIE EVANS, AT [facility]. PATIENT TO BE PICKED UP BY [facility] AT 2230. SHE VERBALIZED UNDERSTANDING. WILL CONTINUE TO MONITOR PATIENT.
--- NOTE | 2019-02-02 19:20 | NUR ---
REPORT GIVEN TO TOOL PROFILING MACHINE SET UP OPERATOR NURSE AT BEDSIDE FOR CONTINUITY OF CARE. PATIENT IN STABLE CONDITION. ENDORSED DISCHARGE PAPERWORK FOR PATIENT TO SIGN TO TOOL PROFILING MACHINE SET UP OPERATOR NURSE.
--- NOTE | 2019-02-02 19:21 | NUR ---
RECD. RESTING IN BED, AWAKE, A/OX4. RESPIRATION EVEN AND UNLABORED. WATCHING TV. IV OF NS AT 75 ML/HR INFUSING, LEFT FOREARM G22. UROSTOMY DRAINING CLEAR YELLOW URINE. SAFETY MEASURES ENFORCED. BED ON ALARM. AWARE OF PLANNED TRANSFER TO [facility]. PLAN OF CARE FOR THE SHIFT DISCUSSED. VERBALIZED UNDERSTANDING. DENIES PAIN 0/10.
[2019-02-02 20:00] VITALS: BP 152/68
--- NOTE | 2019-02-02 21:30 | NUR ---
REVIEWED CARE PLAN OF PT WITH CEE ZAMBRANO LVN.
--- NOTE | 2019-02-02 21:47 | NUR ---
SNACK FOR THE NIGHT GIVEN, REFUSED TO EAT STATED "I ALREADY ATE DINNER." ADDITIONAL DISCHARGE INSTRUCTIONS GIVEN. VERBALIZED UNDERSTANDING.
--- NOTE | 2019-02-02 22:00 | NUR ---
HAD SMALL SOFT BM IN THE BSC. ASSISTED BACK TO BED, CHANGED GOWN. MADE COMFORTABLE IN BED.
[2019-02-03] VITALS: BP 144/50
--- NOTE | 2019-02-03 00:05 | NUR ---
[facility] CAME TO TAKE PATIENT, REPORT GIVEN.
--- NOTE | 2019-02-03 00:30 | NUR ---
DISCHARGED IN STABLE CONDITION VIA GURNEY ACCOMPANIED BY AMBULANCE PERSONNEL FOR TRANSFER TO [facility]. ENVIRONMENTAL HEALTH AND SAFETY LEADER FELICITA MADE AWARE.
== END 2019-02-03 01:14 | DRG 720 ==
LOC: MED 05:18 → MTU 08:07
PROVIDERS: ADMIT Internal Medicine Pulmonary Disease; ATTEND Internal Medicine Pulmonary Disease
DX: A41.9 Sepsis, unspecified organism (principal); N17.0 Acute kidney failure with tubular necrosis; E11.22 Type 2 diabetes mellitus with diabetic chronic kidney disease; E86.9 Volume depletion, unspecified; N39.0 Urinary tract infection, site not specified; I12.9 Hypertensive chronic kidney disease with stage 1 through stage 4 chronic kidney disease, or unspecified chronic kidney disease; N18.9 Chronic kidney disease, unspecified; Z85.51 Personal history of malignant neoplasm of bladder; S50.01XA Contusion of right elbow, initial encounter; B96.20 Unspecified Escherichia coli [E. coli] as the cause of diseases classified elsewhere; B96.89 Other specified bacterial agents as the cause of diseases classified elsewhere; J44.9 Chronic obstructive pulmonary disease, unspecified; Z93.6 Other artificial openings of urinary tract status; W01.0XXA Fall on same level from slipping, tripping and stumbling without subsequent striking against object, initial encounter; Y93.89 Activity, other specified; Y92.89 Other specified places as the place of occurrence of the external cause; Y99.8 Other external cause status; E44.1 Mild protein-calorie malnutrition
CPT/HCPCS: 36415; 71045; 73100; 80048; 80053; 81001; 82948; 83605; 83690; 83735; 84100; 85025; 85610; 87040; 87081; 87086; 87186; 93005; 96365; 97110; 97116; 97161-GP; 97530; 99291; C1758; J0696; J1644; J2543; J3480; J7030; J7060; Q0092

== ENCOUNTER 2020-12-27 15:39 | Emergency (ER) | payer MEDICARE, OTHER ==
[~2020-12-27] VITALS: Ht 157.5 cm; Wt 43.1 kg
[~2020-12-27 15:39] MED LIST changes: -ASPI-1718 PO; +GLIP5TAB14 PO; -GLIP5TAB4 PO; -LEVO750T2 PO
[2020-12-27 16:05] VITALS: BP 148/66
[2020-12-27 16:59] LABS: BASOPHILS % (AUTO) 0.2 % (0.0-2.0); EOSINOPHILS # (AUTO) 0.1 K/uL (0-0.4); EOSINOPHILS % (AUTO) 1.9 % (0.0-4.0); HEMATOCRIT 31.7 % (36-52); HEMOGLOBIN 10.7 g/dL (12.0-18.0); LYMPHOCYTES # (AUTO) 1.4 K/uL (2.0-11.5); LYMPHOCYTES % (AUTO) 28.6 % (20.5-51.1); MEAN CORPUSCULAR HEMOGLOBIN 31 pg (27-31); MEAN CORPUSCULAR HGB CONC 34 g/dL (33-37); MEAN CORPUSCULAR VOLUME 92.6 fL (80-94); MONOCYTES # (AUTO) 0.3 K/uL (0.8-1.0); MONOCYTES % (AUTO) 5.1 % (1.7-9.3); NEUTROPHILS # (AUTO) 3.2 K/uL (1.8-7.7); NEUTROPHILS % (AUTO) 64.2 % (42.2-75.2); PLATELET COUNT (AUTO) 249 K/uL (140-450); RED BLOOD CELL COUNT(AUTO) 3.42 MIL/uL (4.20-6.10); RED CELL DISTRIBUTION WIDTH 13.8 % (11.6-13.7); WHITE BLOOD COUNT (AUTO) 4.9 K/uL (4.8-10.8)
[2020-12-27 17:04] LABS: ANION GAP 9.8 (8-16); CARBON DIOXIDE 29.2 mmol/L (21-32); CHLORIDE 106 mmol/L (98-107); CREATININE 2.2 mg/dL (0.6-1.3); GLUCOSE 130 mg/dL (74-106); SODIUM SERUM 141 mmol/L (136-145); UREA NITROGEN, BLOOD 33 mg/dL (7-18)
[2020-12-27 17:19] LABS: APPEARANCE,URINE CLOUDY (CLEAR); BILIRUBIN,URINE 3+ (NEGATIVE); BLOOD, URINE 3+ (NEGATIVE); LEUKOCYTE ESTERASE ,URINE 3+ (NEGATIVE); NITRITE, URINE POSITIVE (NEGATIVE); UGLUCOSE TRACE (NEGATIVE)
[2020-12-27 17:20] LABS: COLOR,URINE BLACK (YELLOW)
[2020-12-27] MEDS ORDERED: CEPH-588 PO (17:22)
[2020-12-27 17:25] LABS: RBC,URINE TOO NUMEROUS TO COUN /HPF (0-5)
== END 2020-12-27 17:42 | disposition home or self-care (01) ==
LOC: MED 15:39
DX: N39.0 Urinary tract infection, site not specified (principal); Z43.6 Encounter for attention to other artificial openings of urinary tract
CPT/HCPCS: 36415; 80048; 81001; 85025; 87086; 99284